=== PATIENT | male | born 1960 | race Caucasian/White ===

== ENCOUNTER 2022-09-29 15:19 | Outpatient (CLI) | payer SELFPAY | END 2022-09-29 15:20 | disposition home or self-care (01) | LOC: AMB 10-07 21:43 | PROVIDERS: Visit Provider Family Medicine | DX: R41.82 Altered mental status, unspecified (principal) | CPT/HCPCS: A0425; A0433 ==

== ENCOUNTER 2025-02-19 01:52 | Outpatient (CLI) | payer MEDICARE, SELFPAY | END 2025-02-19 01:53 | disposition home or self-care (01) | LOC: AMB 02-20 13:21 | PROVIDERS: Visit Provider Family Medicine | DX: R41.82 Altered mental status, unspecified (principal); T65.91XA Toxic effect of unspecified substance, accidental (unintentional), initial encounter; Y92.009 Unspecified place in unspecified non-institutional (private) residence as the place of occurrence of the external cause | CPT/HCPCS: A0425; A0427 ==

== ENCOUNTER 2025-02-19 02:36 | Inpatient (IN) | payer MEDICARE, SELFPAY ==
[2025-02-19] VITALS (19 sets, daily range): BP systolic 98–155; BP diastolic 72–108; PULSE 64–99; RESP 10–17; TEMP 36.2–37.1; O2SAT 90–99; BMI 21.0
[2025-02-19] MEDS: 0.9 % SODIUM CHLORIDE 1000 ml 1,000 ML IV ×2 (02:45→03:30)
--- NOTE | 2025-02-19 03:01 | XR_ITS ---
Patient: ISABELLE GRAFF Facility:?[facility] Patient ID:?[id number] Site Patient ID:?[id number] Site :?1960 Study:?XRay-Chest 2V-02/19/2025 3:12:39 AM Ordering Physician:Shawna Negron Final Report: Indication: Shortness of breath Technique: Single view of the chest Comparison: Chest radiograph performed 06/11/2017 Findings/Impression: Prominent central and peripheral interstitial markings, question volume overload. Dictated by Param Lentz MD @ 02/19/2025 3:40:17 AM (Electronic Signature)
[2025-02-19] MEDS: ONDANSETRON 2 MG/ML inj 4 MG IVP (03:15)
--- NOTE | 2025-02-19 03:15 | CT_ITS ---
Patient: ISABELLE GRAFF Facility:?[facility] Patient ID:?[id number] Site Patient ID:?[id number] Site :?1960 Study:?CT-Head WITHOUT-02/19/2025 3:27:55 AM Ordering Physician:Jamil Matos Final Report: Indication: Altered mental status Technique: Noncontrast CT through the head with multiplanar reformats Comparison: None Findings: Mild motion degradation. Brain: No acute hemorrhage. No acute infarct. No significant mass effect or midline shift. No gross evidence of a mass lesion or cerebral edema. Mild chronic microvascular ischemic disease and global parenchymal volume loss. Ventricles: No acute abnormality appreciated. Orbits, sinuses, mastoids: No acute abnormality appreciated. Trace sinus disease. Calvarium and soft tissues: No acute abnormality appreciated. Impression: Allowing for mild motion degradation, no acute abnormality is appreciated. Please note that all CT scans at this facility use dose modulation, iterative reconstruction, and/or weight-based dosing when appropriate to reduce radiation dose to as low as reasonably achievable. Dictated by Param Lentz MD @ 02/19/2025 3:41:41 AM (Electronic Signature)
--- NOTE | 2025-02-19 04:22 | ED.GENADULT ---
HPI - General Adult General Chief complaint: Altered Mental Status Stated complaint: overdose Time Seen by Provider: 02/19/25 04:22 Source: EMS Mode of arrival: EMS Limitations: altered mental status History of Present Illness HPI narrative: Downtime documentation on Kahlil Max 67-year-old male presents to the emergency department by EMS GCS of 12 reported at the scene.? Family reports 6 hours of altered mental status, lethargy.? As all seem to start after patient took an unknown substance that was sitting on the kitchen counter, believed to be drugs.? History of tobacco use and longstanding history of alcoholism.? Patient does not disclose what he takes even though he is clearly listening to us, speaking in full sentences at the time of arrival, asking for water but he they had questions regarding the ingested substance.? EMS reports that he has become increasingly more active and alert since their arrival.? They did originally think that he would need intubation but became more and more aroused.? He did receive 2 doses of Narcan from 1st responders which they initially reported did not have effect.? Blood sugar reported to be 130 on the scene. ?No additional treatments were given by EMS.? Was placed on nasal cannula oxygen, nasal trumpet was placed, vital signs had remained stable, they were unable to get a good 12 lead EKG but reported nice regular rhythm upon transport to [facility].? Family denies any recent illness or trauma.? No in knows what substance he ingested.? He is not disclosing this.? He gives no additional history.? We do have some outside records from a line of that show alcoholism. ?his last ED visit was for hand laceration in December while he was cleaning his hunting knives.? It appears as though he received stitches, no antibiotics and was discharged from [facility].? Our computer system is down and cannot be reviewed, routine maintenance monthly.? EMS reports no obvious drug paraphernalia on scene. Past medical history is notable for chronic alcohol abuse.? Adjustment disorder, chronic pain disorder.? History of hepatitis-C.? It does not appear as though he is prescribed any long-term medications.? Last tetanus shot was in December.? No known drug allergies. Upon arrival, O2 sats were 96% on 10 L, we quickly weaned him down to 5 L and at the time of by inventory and pricing associate which is about 45 minutes from arrival, he is on room air satting 96%.? Initial blood pressure 115/80 with a pulse of 95 temp of 96.1?.? Generally he is awake, GCS is 14, not clearly following commands but much of this does seem quite selective.? Head appears atraumatic eyes with normal-appearing pupils and conjunctiva.? Extraocular movements are intact.? Equal round and reactive to light.? Oropharynx with poor dentition but with symmetric palate, normal appearing tongue.? Normal facial exam neck is supple no lymphadenopathy, normal range of motion with no obvious stiffness.? Heart with regular rate rhythm no murmurs rubs or gallops the chest shows pes excavatum, chronic appearing in nature.? No obvious signs of chest trauma.? The lungs have some mild end expiratory wheeze and some mild coarse upper airway sounds but no obvious crackles, does have good symmetric air movement and normal effort.? Abdomen soft nontender nondistended no masses no hepatosplenomegaly.? Extremities are well perfused with normal capillary refill, no obvious trauma.? No joint enlargement or signs recent injury.? Neurologically he can move his upper lower extremities at will.? No obvious focal deficit, does seem intoxicated.? Skin warm and well perfused with no obvious lacerations, bruises.? Mentation difficult to assess in altered state. ED course:? Team was assembled with anticipation of need for RSI.? Thankfully this was not necessary.? With patient's mild agitation, we did have some difficulty getting an IV also compound by his poor venous status.? Eventually 1 was obtained, a L of normal saline warmed was started, blankets.? We were not able to draw blood unfortunately after her IV start and additional personnel were needed from lab for this.? Baker catheter was placed to collect urinalysis and measure urine output.? We wean down to 5 and now room air.? He is off to head CT.? EKG is obtained.? This shows normal sinus rhythm with a rate of 95 some chronic appearing left atrial enlargement but no significant ST or T-wave abnormalities.? Normal axis, good R-wave progression.? Computer system is down, can?t look for comparisons.? Will obtain typical labs, provide fluid and respiratory support if needed while we await labs and findings.? At this point since he is improving rapidly, I suspect that the etiology of his altered mental status is intoxication likely polysubstance.? Cannot exclude sepsis, other sources of infection, poisoning, metabolic derangement secondary to dehydration, electrolyte abnormality, intra-abdominal process, acute respiratory process, postictal state due to seizure, chronic conditions, amongst many others.? Laboratory studies should help narrow the scope and guide further decision making.? Overall reassuring that he does seem to be improving rapidly from original EMS arrival. Initial labs: Initial lactate is 9.4 which is thought secondary to dehydration, not showing any signs of tachycardia or hypotension that would indicate sepsis. His initial pH is 7.109 indicating significant acidosis. I suspect that this was primarily a respiratory driven process. I do think 5th the several hours that he was down prior to his family calling EMS and then the administration of Narcan which was likely able to reverse the opiates but not fully account for the metabolic damage and potentially all the other substances on board. Patient did start to improve within about 20-30 minutes of the Narcan administration, leading me to believe that this likely was a bigger factor for improvement than initially thought by 1st responders. Initial drug screens are positive for opiates, amphetamines, methamphetamines, cocaine and marijuana. White blood cell count elevated at 19 with a hemoglobin of 13.5 and platelets of 248. Sodium 146 potassium 4.5 labium 18 and a creatinine of 2.1. AST of 245 with an ALT of 169 indicating likely chronic alcohol abuse, normal bilirubin. Ammonia 37.7 with initial troponin of 0.557, unexpectedly elevated. Magnesium of 2.5 alcohol level less than 0.01 Tylenol level negative as well. Will order repeat lactate after 2 L of fluids, repeat troponin and repeat blood gases at 4:30 a.m.. Findings: Per my interpretation CT of the head showing no signs of mass, intracranial hemorrhage, skull fracture or abnormality.? Radiological interpretation Impression: Allowing for mild motion degradation, no acute abnormality is appreciated.: Chest x-ray per my interpretation showing some prominent vascular markings, no obvious infiltrate, effusion, pneumothorax or major cardiac enlargement.? Radiological interpretation: Findings/Impression: Prominent central and peripheral interstitial markings, question volume overload. Status update at 4:00 a.m.. Patient continues to arouse to voice, will take sips at the bedside, move extremities on demand but falls back to sleep quickly. Vitals have remained stable, he is off of oxygen and breathing well on his own. 2 L fluid is nearly complete, awaiting repeat labs. Related Data Allergies Allergy/AdvReac Type Severity Reaction Status Date / Time No Known Drug Allergies Allergy Verified 02/19/25 04:27 [facility] Social History Non-prescribed substance use: declined to answer Exam Const: Vital Signs, click to edit/add: Vital Signs - 24 hr 02/19/25 02:36 02/19/25 02:45 02/19/25 03:00 Temperature 97.1 F L Pulse Rate Pulse Rate [Pulse Oximeter] 96 99 97 Respiratory Rate 14 14 14 Blood Pressure [Ri ght Upper Arm] 115/80 117/103 H 117/103 H Pulse Oximetry 99 99 98 Oxygen Delivery Me thod Ambu-Bag OxyMask OxyMask Oxygen Flow Rate 15 15 5 02/19/25 03:10 02/19/25 03:30 02/19/25 04:00 Temperature Pulse Rate Pulse Rate [Pulse Oximeter] 97 82 79 Respiratory Rate 14 16 16 Blood Pressure [Ri ght Upper Arm] 115/80 98/72 111/78 Pulse Oximetry 96 95 96 Oxygen Delivery Me thod Room Air Room Air Nasal Cannula Oxygen Flow Rate 0 0 2 02/19/25 04:30 02/19/25 04:40 02/19/25 04:44 Temperature Pulse Rate 82 Pulse Rate [Pulse Oximeter] 79 Respiratory Rate 14 10 L Blood Pressure [Ri ght Upper Arm] 114/85 Pulse Oximetry 97 96 96 Oxygen Delivery Me thod Nasal Cannula Nasal Cannula Oxygen Flow Rate 2 2 02/19/25 04:45 Temperature 97.9 F Pulse Rate 80 Pulse Rate [Pulse Oximeter] Respiratory Rate 17 Blood Pressure [Ri ght Upper Arm] Pulse Oximetry 92 Oxygen Delivery Me thod Nasal Cannula Oxygen Flow Rate 2 Course Course ED Course: Update 5:15 a.m.: Patient more easily aroused, will ask spontaneous questions now in addition to answering our questions. Still not showing any focal neurological deficits, continues to deny chest pain. His troponins are trending down and his repeat EKG is stable, still no signs of ischemia. Acidosis is improving on repeat labs, he is now drinking fluids. I think that the subendocardial myocardial infarction was likely secondary to hypoxia and respiratory failure from opiate overdose though there are multiple agents in his system. Counseled patient that his event would have likely been fatal had his family not called for help and the Narcan been given. Patient has been accepted by the hospitalist for observation admission, they will continue fluid and electrolyte management, management of acidosis, further investigation of cardiac status. I recommended an echo and continued chief service dispatcher in telemetry. They will assume care. Patient was agreeable to admission. Vital Signs Vital signs: Initial Vital Signs Temperature 97.1 F L 02/19/25 02:36 Temperature Source Temporal Artery Scan 02/19/25 02:36 Pulse Rate 96 02/19/25 02:36 Respiratory Rate 14 02/19/25 02:36 Blood Pressure 115/80 02/19/25 02:36 Blood Pressure Mean 91 02/19/25 02:36 Blood Pressure Position Supine 02/19/25 02:36 Pulse Oximetry 99 02/19/25 02:36 Oxygen Delivery Method Ambu-Bag 02/19/25 02:36 Oxygen Flow Rate 15 02/19/25 02:36 Vital Signs Temperature 97.1 F L 02/19/25 02:36 Pulse Rate 96 02/19/25 02:36 Respiratory Rate 14 02/19/25 02:36 Blood Pressure 115/80 02/19/25 02:36 Pulse Oximetry 99 02/19/25 02:36 Oxygen Delivery Method Ambu-Bag 02/19/25 02:36 Oxygen Flow Rate 15 02/19/25 02:36 Temperature 97.9 F 02/19/25 04:45 Pulse Rate 80 02/19/25 04:45 Respiratory Rate 17 02/19/25 04:45 Blood Pressure 114/85 02/19/25 04:30 Pulse Oximetry 92 02/19/25 04:45 Oxygen Delivery Method Nasal Cannula 02/19/25 04:45 Oxygen Flow Rate 2 02/19/25 04:45 Medications Administered Medications: Generic Name Dose Route Start Last Admin Trade Name Freq PRN Reason Stop Dose Admin Sodium Chloride 1,000 mls @ 1,000 mls/hr 02/19/25 04:39 02/19/25 03:45 0.9 % Sodium Chloride 1000 Ml IV 02/19/25 05:38 Infused .Q1H ROBERT Infusion Sodium Chloride 1,000 mls @ 1,000 mls/hr 02/19/25 04:39 02/19/25 04:30 0.9 % Sodium Chloride 1000 Ml IV 02/19/25 05:38 Infused .Q1H ROBERT Infusion Ondansetron HCl 4 mg 02/19/25 04:39 02/19/25 03:15 Ondansetron 2 Mg/Ml Inj IVP 02/19/25 04:40 4 mg ONCE ONE Administration Medical Decision Making Lab Data Lab results reviewed: Yes I reviewed the patient's lab results Lab results narrative: Second troponin improving somewhat, acidosis improving rapidly. Lactate improving as well. Labs: Lab Results 02/19/25 02/19/25 Range/Units 03:15 04:22 WBC 19.07 H (4.50-11.00) K/uL RBC 4.58 (4.30-5.90) m/uL Hgb 13.5 (13.5-17.5) gm/dL Hct 42.7 (37.0-53.0) % MCV 93 (80-100) fL MCH 30 (26-34) pg MCHC 32 (32-36) gm/dL Plt Count 248 (140-440) K/uL Neut % (Auto) 85.5 H (42.0-72.0) % Lymph % (Auto) 3.2 L (20-44) % [place] % (Auto) 9.6 (0.0-11.0) % Eos % (Auto) 0.0 (0.0-7.0) % Baso % (Auto) 0.1 (0.0-3.0) % Neut # (Auto) 16.30 H (1.7-7.0) K/uL Lymph # (Auto) 0.61 L (0.90-2.90) K/uL [place] # (Auto) 1.80 H (0.00-0.90) K/UL Eos # (Auto) 0.00 (0.00-0.50) K/uL Baso # (Auto) 0.00 (0.00-0.30) K/uL VBG pH 7.109 L* 7.343 (7.32-7.43) VBG pCO2 68 H* 54 H (40-50) mmHG VBG pO2 30.5 44.6 (25-47) mmHG VBG HCO3 22 24 (21-28) mmol/L Sodium 146 (135-149) mmol/L Potassium 4.5 (3.6-5.1) mmol/L Chloride 104 (96-114) mmol/L Carbon Dioxide 19 L (20-32) mmol/L Anion Gap 23 H (7-15) mEq/L BUN 18 (7-30) mg/dL Creatinine 21.0 H (0.5-1.5) mg/dL Estimated Creat Clear 3.00 Estimated GFR 2 ml/min Glucose 93 (60-115) mg/dL Lactate 9.4 H* 3.3 H (0.5-1.9) mmol/L Calcium 9.2 (8.4-10.6) mg/dL Magnesium 2.5 (1.5-2.6) mg/dL Total Bilirubin 0.4 (0.1-1.5) mg/dL AST 245 H (12-35) U/L ALT 169 H (4-50) U/L Alkaline Phosphatase 68 (40-150) U/L Ammonia 37.7 H (13.1-30.0) umol/L Total Creatine Kinase 410 H (54-186) U/L Troponin I 0.56 H* 0.49 H* (0.01-0.04) ng/mL Total Protein 7.9 (6.0-8.3) g/dL Albumin 5.1 H (3.3-5.0) g/dL Urine Color Yellow (Yellow) Urine Appearance Clear (Clear) Urine pH 6.0 (5.0-8.5) Ur Specific [place] 1.030 (1.000-1.030) Urine Protein 3+ A (Negative) Urine Glucose (UA) Negative (Negative) Urine Ketones Negative (Negative) Urine Blood 3+ A (Negative) Urine Nitrite Negative (Negative) Urine Bilirubin Negative (Negative) Urine Urobilinogen 0.2 (0.2-1.0) Ur Leukocyte Esterase Negative (Negative) Urine RBC 5-10 A (0-2) Urine WBC 0-2 (0-5) Ur Squamous Epith Cells None (None-Few) Urine Bacteria None (None) Urine Mucus Few A (None) Urine Opiates Screen POSITIVE A (Negative) Ur Oxycodone Screen Negative (Negative) Urine Methadone Screen Negative (Negative) Acetaminophen 10.0 (10.0-30.0) ug/mL Ur Barbiturates Screen Negative (Negative) U Tricyclic Antidepress Negative (Negative) Ur Phencyclidine Scrn Negative (Negative) Ur Amphetamines Screen POSITIVE A (Negative) U Methamphetamines Scrn POSITIVE A (Negative) U Benzodiazepines Scrn Negative (Negative) Urine Cocaine Screen POSITIVE A (Negative) U Marijuana (THC) Screen POSITIVE A (Negative) Ur Drug Screen Comment See Note Ethyl Alcohol 0.01 (0.01-0.03) % Critical Care Time Critical Care Time Critical Care Time: Yes Attestation: The patient required my highest level preparedness to intervene emergently and I personally spent this critical care time directly and personally managing the patient. This critical care time included: Obtaining a history; Examining the patient; Pulse oximetry; Ordering and reviewing of studies; Arranging urgent treatment with development of a management plan; Evaluation of patients response to treatment; Frequent reassessment discussions with other providers. This critical care time was performed to assess and manage the high probability of imminent life-threatening deterioration that could result in multiorgan failure. It was exclusive of separate billable procedures and treating other patients and teaching time. Total Critical Care Time in Minutes: 42 (Initial stabilization and management of patient.) Discharge Plan Discharge Clinical Impression: Metabolic acidosis, Elevated troponin, Acute hypoxic respiratory failure, Delirium, drug-induced, Acute dehydration Patient Disposition: Admitted As Inpatient
--- OUTSIDE RECORDS SUMMARY | 2025-02-19 04:24 | XMS_ITS | Encounter Summary ---
Author Organization [facility] Address [address] [place] [id number] Care Team Providers Care Food Checkers And Cashiers Supervisor Name Role Phone Naoh Campos MD Primary Care Provider [phone] Noah Campos MD Unavailable [phone] Noah Campos MD Unavailable [phone] Encounter Details Date Type Department Care Team (Late st Contact Info) Description 07/08/2007 [facility] [address] [phone] Noah Campos MD [address] [place] [address] [phone] ER VISIT (Primary Dx) Social History Tobacco Use Types Packs/Day Years Used Date Smoking Tobacco: Every Day Cigarettes Smokeless Tobacco: Never Comments:1 pk every 3-4 days Alcohol Use Standard Drinks/Week Comments No 0 (1 standard drink = 0.6 oz pur e alcohol) Sex and Gender Information Value Date Recorded Sex Assigned at Not on file Legal Sex Male 3:22 AM [employer] Gender Identity Not on file Sexual Orientation Not on file documented as of this encounter Plan of Treatment Not on file documented as of this encounter Visit Diagnoses Diagnosis ER VISIT- Primary documented in this encounter Care Teams Food Checkers And Cashiers Supervisor Relationship Specialty Start Date End Date Noah Campos MD [address] [place] [address] [phone] PCP - General 11/26/01 Noah Campos MD [address] [place] [phone] PCP - Assigned PCP 04/15/10 12/14/18 Noah Campos MD [address] [place] [phone] Assigned PCP 07/15/12 11/10/20 documented as of this encounter
--- OUTSIDE RECORDS SUMMARY | 2025-02-19 04:24 | XMS_ITS | Clinical Summary ---
Author Organization [facility] Address [address] [place] [address] Care Team Providers Care Aircraft Life Support Fitter Name Role Phone Noah Campos MD Primary Care Provider [phone] Allergies No known active allergies Medications fish oil-omega-3 fatty acids (FISH OIL) 1000 MG capsule Take 2 g by mouth daily. Active ORDER FOR DMEIndications: Paresthesias in right hand,Pain in wrist, right Equipment being ordered: right velcrow wrist splint 1 Device 0 4 Active Ketoprofen POWDIndications :Back pain,Low back pain,Chronic pain syndrome,Neural oumar, neuritis, and radiculitis, unspecified,Luke fascial pain Apply 10 % in PLO gel tid to right flank, low back and right costal margin 120 g 0 4 Active lidocaine (LIDODERM) 5 % patchIndication s:Back pain,Low back pain,Chronic pain syndrome,Neural oumar, neuritis, and radiculitis, unspecified,Luke fascial pain Place 1-3 patches onto the skin every 24 hours May cut fit apply to right lateral rib cage, right flank and low back. 90 patch 1 4 Active ORDER FOR DMEIndications: Back pain,Low back pain,Chronic pain syndrome,Neural oumar, neuritis, and radiculitis, unspecified,Luke fascial pain Equipment being ordered: TENS 1 each 0 4 Active gabapentin (NEURONTIN) 600 MG tabletIndicatio ns:Back pain,Low back pain,Chronic pain syndrome,Neural oumar, neuritis, and radiculitis, unspecified,Luke fascial pain Take 1 tablet (600 mg) by mouth 3 times daily 90 tablet 5 5 Active cyclobenzaprine (FLEXERIL) 5 MG tabletIndicatio ns:Chronic pain syndrome Take 1-2 tablets (5-10 mg) by mouth 3 times daily as needed for muscle spasms 60 tablet 5 6 Active albuterol (PROAIR HFA/PROVENTIL HFA/VENTOLIN HFA) 108 (90 BASE) MCG/ACT InhalerIndicati ons:Chest wall pain,Empyema lung (H) Inhale 2 puffs into the lungs every 6 hours as needed for shortness of breath / dyspnea 3 Inhaler 11 7 Active oxyCODONE IR (ROXICODONE) 5 MG tabletIndicatio ns:Chronic pain syndrome,Empyem a lung (H) Take 1 tablet (5 mg) by mouth 2 times daily as needed for moderate to severe pain 60 tablet 8 Active Active Problems Problem Noted Date Diagnosed Date Major depressive disorder, single episode, mild 05/12/2016 Acute hepatitis C virus infection without hepati c coma 05/12/2016 Lumbago 04/12/2014 Carpal tunnel syndrome 03/02/2014 Chronic pain syndrome 12/27/2013 Overview (01/20/2018): Patient is followed by Noah Campos for ongoing prescription of pain meds All refills should be approved by this provider, or covering partner. Narcotic agreement on file: Yes as available 01/27/2014 Pain Clinic evaluation in the past: No. Medication(s): roxicodone. Maximum quantity per month: 1 month Clinic visit frequency required: Q 6 months Controlled substance agreement: yes Encounter-Level CSA: There are no encounter-level csa. Pain Clinic evaluation in the past: Yes Date/Location: [facility] Total Score(s): No flowsheet data found. 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 Provider to review Immunizations Immunization Administration Dates Next Due Influenza (IIV3) PF 08/31/2017, 4,08/09/2013,2011,08/10/2010 Influenza Vaccine >6 months,quad, PF 08/15/2015 Influenza Vaccine, 6+MO IM (QUADRIVALENT W/PRESERVATIVES) 09/21/2020 Mantoux Tuberculin Skin Test 11/20/2011 Pneumococcal 23 valent 12/09/2008,09/27/2008 TD,PF 7+ (Tenivac) 04/27/1984 TDAP Vaccine (Adacel) 09/11/2010,05/23/2009,12/11 Family History Medical History Relation Comments Heart Disease Father b. 1929, CAD- By pass surgery Cancer Mother lung cancer Family History Negative Mother b. 1939 Respiratory Son b. 1996, asthma Relation Status Comments Father Alive Mother (Age 72) Son Social History Tobacco Use Types Packs/Day Years Used Date Smoking Tobacco: Every Day Cigarettes Smokeless Tobacco: Never Tobacco Cessation:Ready to Q uit: No; Counseling Given: No Comments:1 pk every 3-4 days Alcohol Use Standard Drinks/Week Comments No 0 (1 standard drink = 0.6 oz pur e alcohol) PHQ-2 Answer Date Recorded PHQ-2 Score 0 10/19/2018 Adolescent Education Answer Date Record ed Getting School Help Needed Not on file 07/12 Sex and Gender Information Value Date Recorded Sex Assigned at Not on file Legal Sex Male 3:22 AM SHAREPOINT SOLUTIONS ARCHITECT Gender Identity Not on file Sexual Orientation Not on file Last Filed Vital Signs Vital Sign Reading Time Taken Comments Blood Pressure 137/86 08/12/2020 10:39 PM SHAREPOINT SOLUT[employer] ARCHITECT Pulse 76 08/12/2020 10:39 PM SHAREPOINT SOLUTIONS ARCHITECT Temperature 36.7 C (98 F) 08/12/2020 7:28 PM SHAREPOINT SOLUT[employer] ARCHITECT Respiratory Rate 20 08/12/2020 10:39 PM SHAREPOINT SOLUTIONS ARCHITECT Oxygen Saturation 98% 08/12/2020 10:39 PM SHAREPOINT SOLUTIONS ARCHITECT Inhaled Oxygen Concentration - - Weight 70.8 kg (156 lb) 08/12/2020 7:28 PM SHAREPOINT SOLUT[employer] ARCHITECT Height 170.2 cm (5' 7) 08/12/2020 7:28 PM SHAREPOINT SOLUT[employer] ARCHITECT Body Mass Index 24.43 08/12/2020 7:28 PM SHAREPOINT SOLUTIONS ARCHITECT Plan of Treatment Health Maintenance Due Date Last Done Comments ADVANCE CARE PLANNING 1960 ANNUAL REVIEW OF HM ORDERS 1960 CT COLONOGRAPHY 1960 sDNA (Cologuard) 1960 COLONOSCOPY 1971 MEDICARE ANNUAL WELLNESS VISIT 1979 Pneumococcal Vaccine: 50+ Years (2 of 2 - PCV) 12/09/2009 12/09/2008, 09/27/2008 FLEX SIG 05/27/2011 05/27/2006 LUNG CANCER SCREENING 2011 11/20/2008, 008 ZOSTER IMMUNIZATION (1 of 2) 2011 COLORECTAL CANCER SCREENING 11/22/2012 FIT 11/22/2012 11/22/2011 LIPID 11/23/2012 11/23/2011 PSA 11/23/2012 11/23/2011 URINE DRUG SCREEN 12/27/2014 12/27/2013 PHQ-9 05/31/2017 12/01/2016, 04/10/2015, 12/04/2014, Additional history exists DIABETES SCREENING 05/12/2019 05/12/2016, 0 05/21/2015, 05/02/2014, Additional history exists DTAP/TDAP/TD IMMUNIZATION (5 - Td or Tdap) 09/11/2020 09/11/2010, 05/23/2009, 12/30/2007, Additional history exists HEPATITIS B IMMUNIZATION (1 of 3 - Risk 3-dose series) 2021 COVID-19 Vaccine ( season) 2024 INFLUENZA VACCINE (Season Ended) 2025 09/21/2020, 08/31/2017, 08/15/2015, Additional history exists RSV VACCINE (1 - 1-dose 75+ series) 2036 HIV SCREENING Completed 09/21/2008 HEPATITIS C SCREENING Completed 10/14/2010 , 08/17/2010, 12/09/2007, Additional history exists DEPRESSION ACTION PLAN Completed 7, 09/02/2017, 01/31/2016, Additional history exists HPV IMMUNIZATION Aged Out No longer e ligible based on patient's age to complete this topic MENINGITIS IMMUNIZATION Aged Out No l onger eligible based on patient's age to complete this topic Procedures Procedure Name Priority Date/Time Associated Diagnosis Comments GLUCOSE Routine 05/12/2016 3:53 PM CDT Preop general physical exam PAIN DRUG SCR UR W RPTD MEDS Routine 12/27/2013 3:33 PM CDT Empyema lung (H) Chronic pain syndrome PROSTATE SPECIFIC ANTIGEN SCREEN Routine 11/23/2011 4:00 PM SHAREPOINT SOLUTIONS ARCHITECT Special screening for malignant neoplasm of prostate LIPID PROFILE Routine 11/23/2011 4:00 PM SHAREPOINT SOLUTIONS ARCHITECT CARDIOVASCULAR SCREENING; LDL GOAL LESS THAN 130 FECAL COLORECTAL CANCER SCREEN FIT Routine 11/22/2011 8:23 PM [employer]AREPOINT SOL[employer] ARCHITECT Colon cancer screening HEPATITIS C RNA, QUANTITATIVE BY PCR Routine 10/14/2010 11:40 AM SHAREPOINT SOLUTIONS ARCHITECT Chronic hepatitis C without mention of hepatic com HC CT THORAX W/O CONT Routine 11/20/2008 9:16 AM SHAREPOINT SOL[employer]IONS ARCHITECT HIV 1 AND 2 ANTIBODY (QUEST) Timed 09/21/2008 4:35 PM [employer]POINT SOL[employer] ARCHITECT FLEXIBLE SIGMOIDOSCOPY Routine 6 9:05 AM CDT from Last 3 Months or Most Recently Relevant to Health Maintenance Results * (ABNORMAL) Glucose (05/12/2016 3:53 PM CDT) Glucose 108(H) 70 - 99 mg/dL [facility] Blood specimen (specimen) 05/12/2016 3:53 PM CDT 05/12/2016 3:58 PM CDT us Noah Campos MD LAB - BLOOD ORDERABLES Final R esult [facility] [address] [place] [address] * Pain Drug Scr UR W Rptd Meds (12/27/2013 3:33 PM CDT) Pain Drug SCR UR W RPTD Meds FINAL (Note) Test Result Flag UNITS Creatinine 84 mg/dL Drugs Present Gabapentin PRESENT Declared Medications: Not Provided The flagging and interpretation on this report are based on the following declared medications. Unexpected results may arise from inaccuracies in the declared medications. Medication list was not provided. For clinical consultation, please call . Analysis performed by [facility], [address] [place] [address] [facility] Urine specimen (specimen) 12/27/2013 3:33 PM CDT 12/27/2013 3:38 PM CDT us Noah Campos MD LAB - URINE ORDERABLES Final R esult Performing Organization Address [facility] Co de Phone Number [facility] [address] [place] [address] * PSA, screen (11/23/2011 4:00 PM SHAREPOINT SOLUTIONS ARCHITECT) Pathologist [facility] PSA 1.15 0 - 4 ug/L [facility] Blood specimen (specimen) 11/23/2011 4:00 PM SHAREPOINT SOL[employer] ARCHITECT 11/23/2011 4:05 PM SHAREPOINT SOLUT[employer] ARCHITECT us Noah Campos MD LAB - BLOOD ORDERABLES Final R esult Performing Organization Address [facility] Co de Phone Number [facility] [address], [place] [address] * (ABNORMAL) Lipid Profile (11/23/2011 4:00 PM SHAREPOINT SOL[employer] ARCHITECT) Cholesterol 198 0 - 200 mg/dL [facility] Comment: LDL Cholesterol is the primary guide to therapy. The NCEP recommends further evaluation of: patients with cholesterol greater than 200 mg/dL if additional risk factors are present, cholesterol greater than 240 mg/dL, triglycerides greater than 150 mg/dL, or HDL less than 40 mg/dL. Triglycerides 337(H) 0 - 150 mg/dL [facility] HDL Cholesterol 41 40 - 110 mg/dL [facility] LDL Cholesterol Calculated 90 0 - 129 mg/dL [facility] Comment: LDL Cholesterol is the primary guide to therapy: LDL-cholesterol goal in high risk patients is <100 mg/dL and in very high risk patients is <70 mg/dL. VLDL-Cholesterol 67(H) 0 - 30 mg/dL [facility] Cholesterol/HDL Ratio 4.9 0.0 - 5.0 [facility] Blood specimen (specimen) 11/23/2011 4:00 PM [employer] SOL[employer] ARCHITECT 11/23/2011 4:05 PM [employer]AREPOINT SOL[employer] ARCHITECT us Noah Campos MD LAB - BLOOD ORDERABLES Final R esult [facility] [address] [place] [address] * Fecal colorectal cancer screen (FIT) (11/22/2011 8:23 PM SHAREPOINT SOL[employer] ARCHITECT) Pathologist [facility] Occult Blood Scn FIT Negative NEG [facility] Stool specimen (specimen) 11/22/2011 8:23 PM [employer] SOL[employer] ARCHITECT 11/22/2011 8:38 PM [employer]ARE[employer] ARCHITECT us Noah Campos MD LAB - STOOLS ORDERABLES Final Result Performing Organization Address City/[facility]/ZIP Co de Phone Number [facility] [address] [place] [address] * Hepatitis C RNA quantitative (10/14/2010 11:40 AM SHAREPOINT SOL[employer] ARCHITECT) Pathologist [facility] HCV RNA Quant IU/ml <25 <25 IU/mL [facility] Log of HCV RNA Qt <1.4 The Hepatitis C RNA Quantitation assay is a real-time polymerase chain reaction (PCR) utilizing analyte specific reagents manufactured by [employer]. Analyte Specific Reagents (ASRs) are used in many laboratory tests necessary for standard medical care and generally do not require FDA approval. This test was developed and its performance characteristics determined by [facility]. It has not been cleared or approved by the US Food and Drug Administration. The International Unit (IU) is a designated unit value assigned to the International Standard for Nucleic Acid Amplification Technology Assays for HCV RNA which is accepted by the WHO Expert Committee on Biological Standardization. <1.4 Log IU/mL [facility] Blood specimen (specimen) 10/14/2010 11:40 AM SHAREPOINT SOL[employer]IONS ARCHITECT 10/14/2010 11:45 AM [employer]AREPOINT SOL[employer] ARCHITECT us Brady Araujo MD LAB - BLOOD ORDERABLES Fi nal Result [facility] [address] [place] [address] * CT SCAN CHEST (11/20/2008 9:16 AM SHARE[employer] SOL[employer] ARCHITECT) Anatomical Region Laterality Modality Other 11/20/2008 9:16 AM [employer] ARCHITECT Impressions 11/20/2008 12:[address] [employer] [address] CHEST WITHOUT CONTRAST November 20, 2008 9:16:00 AM HISTORY: Pneumonia. Empyema on CT abdomen and pelvis. TECHNIQUE: CT chest performed without IV contrast. COMPARISON: CT abdomen and pelvis 11/19/2008. FINDINGS: Redemonstrated is a loculated right pleural fluid collection with suggestion of thickening peripherally. The fluid component measures stable in size at 4.8 x 2.1 cm, image 39 series 2. There is associated atelectasis, and a small freely layering pleural effusion as well at that site. There is also note of an ill-defined lucent lesion within the posterior right eleventh rib immediately posterior to this process, along with an old healed rib fracture of the right posterior tenth rib. Some more dense opacity may represent some focal airspace disease at the right lower lobe anterior to the atelectatic changes, image 35 series 3. Some very mild patchy ground-glass opacities are identified within the posterior and lateral right upper lobe, image 19 series 3. There is the suggestion of some very mild ground-glass patchy opacities along the periphery of the left upper lobe as well. Scarlike opacities at the base of the right upper lobe are noted. Noncontrast enhanced appearance of the mediastinum shows no acute abnormality. A few mildly prominent appearing left axillary lymph nodes do not reach CT size criteria for pathologic significance. Very mild coronary artery calcification is noted. No pericardial effusion. Included view of the upper abdomen shows no acute abnormalities. Partial visualization of pancreatic calcifications again demonstrated. IMPRESSION: 1. No change in size of a loculated fluid collection within the right posterior pleural space at the right lung base with peripheral thickening. This is nonspecific but may represent an empyema versus other necrotic appearing pleural based process. Associated with this finding is a small dependently layering right pleural effusion, an old right posterior tenth rib fracture, and a lucent lesion within the posterior right eleventh rib. It is difficult to exclude an aggressive process within the right posterior eleventh rib associated with a lucent bony lesion, such as infection versus neoplasm. Correlate with clinical history of infection, and prior malignancy. Close interval imaging followup is recommended. 2. Very mild patchy ground-glass opacities within the right upper lobe. Infectious versus inflammatory etiologies may account for this appearance. Douglas Esposito MD SPECIAL IMAGING STUDIE S Edited * HIV 1 and 2 Antibody (09/21/2008 4:35 PM [employer] SOL[employer] ARCHITECT) Pathologist [facility] HIV 1&2 Antibody Negative NEG [facility] 09/21/2008 4:35 PM [employer] ARCHITECT 09/21/2008 4:30 PM [employer] ARCHITECT Humaira Crooks PA-C LAB - BLOOD ORDERABLES Fi nal Result [facility] * FLEXIBLE SIGMOIDOSCOPY (05/27/2006 9:05 AM CDT) Flex Sig [facility] Endoscopy Department Patient Name: Kahlil Max Gender: M Procedure Date: 05/27/2006 9:05 AM SSN: [id number] Date of : 1960 Age: 45 Admit Type: Inpatient Room: Note Status: Finalized Attending MD: Adam Mckeon Pause For The Cause: Pause for the ca Procedure: Flexible Sigmoidoscopy Indications: Rectal hemorrhage Providers: Adam Mckeon MD, Ashley Painter RN Referring MD: Noah Meyer MD Medicines: None Complications: No immediate complications Procedure: - A History and Physical has been performed, and patient medication allergies have been reviewed. The patient The risks and benefits of the procedure and the sedation options and risks were discussed with the patient. All questions were answered and informed consent was obtained. Patient identification and proposed procedure were verified prior to the procedure by the physician in the endoscopy suite. Mental Status Examination: alert and oriented. Airway Examination: normal oropharyngeal airway and neck mobility. Respiratory Examination: clear to auscultation. CV Examination: RRR, no murmurs, no S3 or S4. ASA Grade Assessment: P2 A patient with mild systemic disease. After reviewing the risks and benefits, the patient was deemed in satisfactory condition to undergo the procedure. The anesthesia plan was to use no sedation or anesthesia. Immediately prior to administration of medications, the patient was re-assessed for adequacy to receive sedatives. The heart rate, respiratory rate, oxygen saturations, blood pressure, adequacy of pulmonary ventilation, and response to care were monitored throughout the procedure. The physical status of the patient was re-assessed after the procedure. After obtaining informed consent, the scope was passed under direct vision. The [id number] onoscope was introduced through the anus and advanced to the splenic flexure. The flexible sigmoidoscopy was accomplished without difficulty. The patient tolerated the procedure well. The quality of the prep was good. Findings: The perianal and digital rectal examination was normal. Pertinent negatives include normal sphincter tone and no palpable rectal lesions. The area from anus to splenic flexure was normal. Impression: - The anus to splenic flexure is normal. Recommendation: - Return to referring provider (Dr. Presley) in 1 week. CPT Code(s): 88308, Sigmoidoscopy, flexible; diagnostic, with or without collection of specimen(s) by brushing or washing (separate procedure) ICD Code(s): 569.3, Hemorrhage of Rectum and Anus The codes documented in this report are preliminary and upon marketing program manager review may be revised to meet current compliance requirements. Attending Participation: I was present and participated during the entire procedure, including non-morris portions. Claire Mckeon M.D. __ Adam Mckeon MD Signed Date: 05/27/2006 10:00 AM Number of Addenda: 0 I was physically present for the entire viewing portion of the exam. Note generated on 05/27/2006 9:06 AM RADIOLOGY RESULTS Flex Sig RADIOLOGY RESULTS 05/27/2006 9:05 AM CDT us Adam Mckeon MD PROCEDURES Final R esult RADIOLOGY RESULTS from Last 3 Months or Most Recently Relevant to Health Maintenance Insurance MEDICARE [facility] [employer] Care Teams Aircraft Life Support Fitter Relationship Specialty Start Date End Date Noah Campos MD [address] [place] [phone] PCP - General 11/26/01
--- OUTSIDE RECORDS SUMMARY | 2025-02-19 04:24 | XMS_ITS | Encounter Summary ---
Author Organization [facility] Address [address] [place] [address] Care Team Providers Care General Supervisor Name Role Phone Noah Campos MD Primary Care Provider [phone] Noah Campos MD Unavailable [phone] Noah Campos MD Unavailable [phone] Encounter Details Date Type Department Care Team (Late st Contact Info) Description 03/07/2009 [facility] [address] [phone] Noah Campos MD [address] [place] [phone] [facility]: ER REPORT Social History Tobacco Use Types Packs/Day Years Used Date Smoking Tobacco: Every Day Cigarettes Smokeless Tobacco: Never Comments:1 pk every 3-4 days Alcohol Use Standard Drinks/Week Comments No 0 (1 standard drink = 0.6 oz pur e alcohol) Sex and Gender Information Value Date Recorded Sex Assigned at Not on file Legal Sex Male 3:22 AM PLASTIC OUTFITTER Gender Identity Not on file Sexual Orientation Not on file documented as of this encounter Plan of Treatment Not on file documented as of this encounter Visit Diagnoses Not on filedocumented in this encounter Care Teams General Supervisor Relationship Specialty Start Date End Date Noah Campos MD [address] [place] [phone] PCP - General 11/26/01 Noah Campos MD [address] [place] [phone] PCP - Assigned PCP 04/15/10 12/14/18 Noah Campos MD [address] [place] [phone] Assigned PCP 07/15/12 11/10/20 documented as of this encounter
--- OUTSIDE RECORDS SUMMARY | 2025-02-19 04:24 | XMS_ITS | Encounter Summary ---
Author Organization [facility] Address [address] [place] [address] Care Team Providers Care Front Office Agent Name Role Phone Noah Campos MD Primary Care Provider [phone] Noah Campos MD Unavailable [phone] Noah Campos MD Unavailable [phone] Encounter Details Date Type Department Care Team (Late st Contact Info) Description 12/15/2008 [facility] [address] [phone] Noah Campos MD [address] [place] [phone] RETURN VISIT 12/15/08 Social History Tobacco Use Types Packs/Day Years Used Date Smoking Tobacco: Every Day Cigarettes Smokeless Tobacco: Never Comments:1 pk every 3-4 days Alcohol Use Standard Drinks/Week Comments No 0 (1 standard drink = 0.6 oz pur e alcohol) Sex and Gender Information Value Date Recorded Sex Assigned at Not on file Legal Sex Male 3:22 AM RETAIL COORDINATOR Gender Identity Not on file Sexual Orientation Not on file documented as of this encounter Plan of Treatment Not on file documented as of this encounter Visit Diagnoses Diagnosis [facility]: ER VISIT- Primary documented in this encounter Care Teams Front Office Agent Relationship Specialty Start Date End Date Noah Campos MD [address] [place] [phone] PCP - General 11/26/01 Noah Campos MD [address] [place] [phone] PCP - Assigned PCP 04/15/10 12/14/18 Noah Campos MD [address] [place] [phone] Assigned PCP 07/15/12 11/10/20 documented as of this encounter
--- OUTSIDE RECORDS SUMMARY | 2025-02-19 04:24 | XMS_ITS | Encounter Summary ---
Author Organization [facility] Address [address] [place] [address] Care Team Providers Care Insurance Attorney Name Role Phone Noah Campos MD Primary Care Provider [phone] Noah Campos MD Unavailable [phone] Noah Campos MD Unavailable [phone] Encounter Details Date Type Department Care Team (Late st Contact Info) Description 12/19/2008 [facility] [address] [phone] Noah Campos MD [address] [place] [phone] [facility] Emergency Dept (Primary Dx) Social History Tobacco Use Types Packs/Day Years Used Date Smoking Tobacco: Every Day Cigarettes Smokeless Tobacco: Never Comments:1 pk every 3-4 days Alcohol Use Standard Drinks/Week Comments No 0 (1 standard drink = 0.6 oz pur e alcohol) Sex and Gender Information Value Date Recorded Sex Assigned at Not on file Legal Sex Male 3:22 AM COMMUNICATION INSTRUCTOR Gender Identity Not on file Sexual Orientation Not on file documented as of this encounter Plan of Treatment Not on file documented as of this encounter Visit Diagnoses Diagnosis [facility] Emergency Dept- Primary documented in this encounter Care Teams Insurance Attorney Relationship Specialty Start Date End Date Noah Campos MD [address] [place] [phone] PCP - General 11/26/01 Noah Campos MD [address] [place] [phone] PCP - Assigned PCP 04/15/10 12/14/18 Noah Campos MD [address] [place] [phone] Assigned PCP 07/15/12 11/10/20 documented as of this encounter
--- OUTSIDE RECORDS SUMMARY | 2025-02-19 04:24 | XMS_ITS | Encounter Summary ---
Author Organization [facility] Address [address], [place] [address] Care Team Providers Care Meat Department Manager Name Role Phone Clinician, Not Found MD Primary Care Provider Un available Encounter Details Date Type Department Care Team (Late st Contact Info) Description 04/18/2015 Orders Only [facility] [address] [place], [place] [address] , Taran Santos MD [address] [place], [place] [address] Social History Tobacco Use Types Packs/Day Years Used Date Smoking Tobacco: Every Day Cigarettes 0.3 25 Alcohol Use Standard Drinks/Week Comments Yes 0 (1 standard drink = 0.6 oz pure alcohol) recovering alcoholic. last drink was 10/26/07 Sex and Gender Information Value Date Recorded Sex Assigned at Not on file Legal Sex Male 3:49 AM CDT Gender Identity Not on file Sexual Orientation Not on file documented as of this encounter Plan of Treatment Not on file documented as of this encounter Visit Diagnoses Not on filedocumented in this encounter Care Teams Meat Department Manager Relationship Specialty Start Date End Date Clinician, Not Found, [place] [address] PCP - General 12/07/14 documented as of this encounter
--- OUTSIDE RECORDS SUMMARY | 2025-02-19 04:24 | XMS_ITS | Encounter Summary ---
Author Organization [facility] Address [address] [place] [address] Care Team Providers Care Netsuite Developer Name Role Phone Noah Campos MD Primary Care Provider [phone] Noah Campos MD Unavailable [phone] Noah Campos MD Unavailable [phone] Encounter Details Date Type Department Care Team (Late st Contact Info) Description 06/07/2009 [facility] [address] [phone] Noah Campos MD [address] [place] [phone] [facility] Emergency Notes (Primary Dx) Social History Tobacco Use Types Packs/Day Years Used Date Smoking Tobacco: Every Day Cigarettes Smokeless Tobacco: Never Comments:1 pk every 3-4 days Alcohol Use Standard Drinks/Week Comments No 0 (1 standard drink = 0.6 oz pur e alcohol) Sex and Gender Information Value Date Recorded Sex Assigned at Not on file Legal Sex Male 3:22 AM 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 Gender Identity Not on file Sexual Orientation Not on file documented as of this encounter Plan of Treatment Not on file documented as of this encounter Visit Diagnoses Diagnosis [facility] Emergency Notes- Primary documented in this encounter Care Teams Netsuite Developer Relationship Specialty Start Date End Date Noah Campos MD [address] [place] [phone] PCP - General 11/26/01 Noah Campos MD [address] [place] [phone] PCP - Assigned PCP 04/15/10 12/14/18 Noah Campos MD [address] [place] [phone] Assigned PCP 07/15/12 11/10/20 documented as of this encounter
--- OUTSIDE RECORDS SUMMARY | 2025-02-19 04:24 | XMS_ITS | Encounter Summary ---
Author Organization [facility] Address [address] [address] Care Team Providers Care Python Programmer Name Role Phone Clinician, Not Found MD Primary Care Provider Un available Encounter Details Date Type Department Care Team (Late st Contact Info) Description 05/05/2016 Orders Only [facility] [address] [place], [place] [address] , Taran Santos MD [address] [place], [place] [phone] Social History Tobacco Use Types Packs/Day Years [...] on filedocumented in this encounter Care Teams Python Programmer Relationship Specialty Start Date End Date Clinician, Not Found, [place] [address] PCP - General 12/07/14 documented as of this encounter
--- OUTSIDE RECORDS SUMMARY | 2025-02-19 04:24 | XMS_ITS | Clinical Summary ---
Author Organization [facility] Address [address], [place] [address] Care Team Providers Care Patient Registration Specialist Name Role Phone Clinician, Not Found MD Primary Care Provider Un available Source Comments You are receiving this document as you are listed as the primary care provider,follow-up provider, or the patient has been referred to you for consultation.This is in compliance with the Medicare and[facility] [employer] EHR Incentive Program,which states Providers who transition their patient to another setting of careor provider of care or refers their patient to another provider of care shouldprovide summary care record for each transition of care or referral. [facility] Allergies No known active allergies Medications CELEXA 10MG ORAL TABSIndications :Depression with anxiety (HRC) Take one tablet by mouth every day. 30 11 12/30/2007 Active cyclobenzaprine (FLEXERIL) 5 MG tablet Take 5 mg by mouth 2 times daily as needed for Muscle spasms. 02/27/2016 Active oxyCODONE (ROXICODONE) 5 MG immediate release tablet Take 5 mg by mouth every 4 hours as needed for Pain. 02/27/2016 Active hydrOXYzine pamoate (VISTARIL) 25 MG capsule Take 1 capsule by mouth 3 times daily as needed for Itching. 30 capsule 0 05/14/2016 Active oxyCODONE-Aceta minophen (PERCOCET) 10-325 MG tablet Take 1-2 tablets by mouth every 4 hours as needed for Pain. Maximum 12 tablets/24 hours 20 tablet 0 05/30/2016 Active Active Problems Problem Noted Date Diagnosed Date Alcohol abuse, in remission 12/30/2007 Overview (06/20/2015): In treatment. ICD 10 Immunizations Immunization Administration Dates Next Due Tdap 12/30/2007 Social History Tobacco Use Types Packs/Day Years Used Date Smoking Tobacco: Every Day Cigarettes 0.3 15 Alcohol Use Standard Drinks/Week Comments Yes 3 (1 standard drink = 0.6 oz pur e alcohol) Sex and Gender Information Value Date Recorded Sex Assigned at Not on file Legal Sex Male 3:49 AM CDT Gender Identity Not on file Sexual Orientation Not on file Last Filed Vital Signs Vital Sign Reading Time Taken Comments Blood Pressure 118/74 05/17/2016 10:36 AM CDT Pulse 64 12/30/2007 10:26 AM CDT Temperature 36.6 C (97.9 F) 05/17/2016 10:36 AM CDT Respiratory Rate - - Oxygen Saturation - - Inhaled Oxygen Concentration - - Weight 77.1 kg (170 lb) 05/17/2016 10:36 AM CDT Height 170.2 cm (5' 7) 05/17/2016 10:36 AM CDT Body Mass Index 26.63 05/17/2016 10:36 AM CDT Plan of Treatment Health Maintenance Due Date Last Done Comments Colon Cancer Screening Plan Due 1961 Hep C Screening (Preventive Services) 1961 PSA Screening Discussion 1961 HIV Screening (Preventive Services) 1977 Adult Preventive Visit 1979 Cholesterol 1996 Pneumococcal Vaccine 50+ Yrs (2 of 2 - PCV) 2011 09/27/2008 Zoster/Shingles Vaccine (1 o f 2) 2011 DTaP/Tdap/Td Vaccine (2 - Tdap) 12/29/2017 12/30/2007, 04/27/1984 COVID-19 Vaccine ( - 2023-2 5 season) 2024 Influenza Vaccine (Season Ended) 2025 RSV Vaccine (1 - 1-dose 75+ series) 2036 HepA Vaccine Aged Out No longer eligi ble based on patient's age to complete this topic HepB Vaccine Aged Out No longer eligi ble based on patient's age to complete this topic Hib Vaccine Aged Out No longer eligi ble based on patient's age to complete this topic IPV (Polio) Vaccine Aged Out No longe r eligible based on patient's age to complete this topic MCV4 Vaccine Aged Out No longer eligi ble based on patient's age to complete this topic Meningococcal B Vaccine Aged Out No l onger eligible based on patient's age to complete this topic Insurance [address] Care Teams Patient Registration Specialist Relationship Specialty Start Date End Date Clinician, Not Found, [place] [address] PCP - General 12/07/14
--- OUTSIDE RECORDS SUMMARY | 2025-02-19 04:24 | XMS_ITS | Encounter Summary ---
Author Organization [facility] Address [address] [place] [address] Care Team Providers Care Agricultural Inspector Name Role Phone Noah Campos MD Primary Care Provider [phone] Noah Campos MD Unavailable [phone] Noah Campos MD Unavailable [phone] Encounter Details Date Type Department Care Team (Late st Contact Info) Description 09/04/2007 [facility] [address] [phone] Noah Campos MD [address] [place] [phone] [facility] (Primary Dx) Social History Tobacco Use Types Packs/Day Years Used Date Smoking Tobacco: Every Day Cigarettes Smokeless Tobacco: Never Comments:1 pk every 3-4 days Alcohol Use Standard Drinks/Week Comments No 0 (1 standard drink = 0.6 oz pur e alcohol) Sex and Gender Information Value Date Recorded Sex Assigned at Not on file Legal Sex Male 3:22 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 Gender Identity Not on file Sexual Orientation Not on file documented as of this encounter Plan of Treatment Not on file documented as of this encounter Visit Diagnoses Diagnosis [facility]- Primary documented in this encounter Care Teams Agricultural Inspector Relationship Specialty Start Date End Date Noha Campos MD [address] [place] [phone] PCP - General 11/26/01 Noah Campos MD [address] [place] [phone] PCP - Assigned PCP 04/15/10 12/14/18 Noah Campos MD [address] [place] [address] [phone] Assigned PCP 07/15/12 11/10/20 documented as of this encounter
--- OUTSIDE RECORDS SUMMARY | 2025-02-19 04:24 | XMS_ITS | Encounter Summary ---
Author Organization [facility] Address [address] [place] [address] Care Team Providers Care Nuclear Cardiology Technologist Name Role Phone Noah Campos MD Primary Care Provider [phone] Noah Campos MD Unavailable [phone] Noah Campos MD Unavailable [phone] Encounter Details Date Type Department Care Team (Late st Contact Info) Description 05/29/2009 [facility] [address] [phone] Noah Campos MD [address] [place] [phone] [facility] Emergency Note (Primary Dx) Social History Tobacco Use Types Packs/Day Years Used Date Smoking Tobacco: Every Day Cigarettes Smokeless Tobacco: Never Comments:1 pk every 3-4 days Alcohol Use Standard Drinks/Week Comments No 0 (1 standard drink = 0.6 oz pur e alcohol) Sex and Gender Information Value Date Recorded Sex Assigned at Not on file Legal Sex Male 3:22 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 Gender Identity Not on file Sexual Orientation Not on file documented as of this encounter Plan of Treatment Not on file documented as of this encounter Visit Diagnoses Diagnosis [facility] Emergency Note- Primary documented in this encounter Care Teams Nuclear Cardiology Technologist Relationship Specialty Start Date End Date Noah Campos MD [address] [place] [phone] PCP - General 11/26/01 Noah Campos MD [address] [place] [phone] PCP - Assigned PCP 04/15/10 12/14/18 Noah Campos MD [address] [place] [address] [phone] Assigned PCP 07/15/12 11/10/20 documented as of this encounter
--- OUTSIDE RECORDS SUMMARY | 2025-02-19 04:24 | XMS_ITS | Encounter Summary ---
Author Organization [facility] Address [address] [place] [address] Care Team Providers Care Surgical Services Asst Name Role Phone Noah Campos MD Primary Care Provider [phone] Noah Campos MD Unavailable [phone] Noah Campos MD Unavailable [phone] Encounter Details Date Type Department Care Team (Late st Contact Info) Description 05/23/2009 [facility] [address] [phone] Noah Campos MD [address] [place] [phone] [facility] Emergency Dept (Primary Dx) Social History Tobacco Use Types Packs/Day Years Used Date Smoking Tobacco: Every Day Cigarettes Smokeless Tobacco: Never Comments:1 pk every 3-4 days Alcohol Use Standard Drinks/Week Comments No 0 (1 standard drink = 0.6 oz pur e alcohol) Sex and Gender Information Value Date Recorded Sex Assigned at Not on file 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 Sex Male 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 Gender Identity Not on file Sexual Orientation Not on file documented as of this encounter Plan of Treatment Not on file documented as of this encounter Visit Diagnoses Diagnosis [facility] Emergency Dept- Primary documented in this encounter Care Teams Surgical Services Asst Relationship Specialty Start Date End Date Noah Campos MD [address] [place] [phone] PCP - General 11/26/01 Noah Campos MD [address] [place] [phone] PCP - Assigned PCP 04/15/10 12/14/18 Noah Campos MD [address] [place] [address] [phone] Assigned PCP 07/15/12 11/10/20 documented as of this encounter
--- OUTSIDE RECORDS SUMMARY | 2025-02-19 04:24 | XMS_ITS | Encounter Summary ---
Author Organization [facility] Address [address] [place] [address] Care Team Providers Care Concrete Floater Name Role Phone Noah Campos MD Primary Care Provider [phone] Noah Campos MD Unavailable [phone] Noah Campos MD Unavailable [phone] Encounter Details Date Type Department Care Team (Late st Contact Info) Description 05/19/2008 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 Gender Identity Not on file Sexual Orientation Not on file documented as of this encounter Plan of Treatment Not on file documented as of this encounter Visit Diagnoses Diagnosis [facility] Emergency Dept Rpt- Primary documented in this encounter Care Teams Concrete Floater Relationship Specialty Start Date End Date Noah Campos MD [address] [place] [phone] PCP - General 11/26/01 Noah Campos MD [address] [place] [address] [phone] PCP - Assigned PCP 04/15/10 12/14/18 Noah Campos MD [address] [place] [phone] Assigned PCP 07/15/12 11/10/20 documented as of this encounter
--- OUTSIDE RECORDS SUMMARY | 2025-02-19 04:24 | XMS_ITS | Encounter Summary ---
Author Organization [facility] Address [address] [place] [address] Care Team Providers Care Flame Cutting Machine Operator Name Role Phone Noah Campos MD Primary Care Provider [phone] Noah Campos MD Unavailable [phone] Noah Campos MD Unavailable [phone] Encounter Details Date Type Department Care Team (Late st Contact Info) Description 12/14/2008 [facility] [address] [phone] Noah Campos MD [address] [place] [phone] [facility] Emergency Dept Note (Primary Dx) Social History Tobacco Use Types Packs/Day Years Used Date Smoking Tobacco: Every Day Cigarettes Smokeless Tobacco: Never Comments:1 pk every 3-4 days Alcohol Use Standard Drinks/Week Comments No 0 (1 standard drink = 0.6 oz pur e alcohol) Sex and Gender Information Value Date Recorded Sex Assigned at Not on file 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 Sex Male 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 Gender Identity Not on file Sexual Orientation Not on file documented as of this encounter Plan of Treatment Not on file documented as of this encounter Visit Diagnoses Diagnosis [facility] Emergency Dept Note- Primary documented in this encounter Care Teams Flame Cutting Machine Operator Relationship Specialty Start Date End Date Noah Campos MD [address] [place] [phone] PCP - General 11/26/01 Noah Campos MD [address] [place] [address] [phone] PCP - Assigned PCP 04/15/10 12/14/18 Noah Campos MD [address] [place] [phone] Assigned PCP 07/15/12 11/10/20 documented as of this encounter
--- OUTSIDE RECORDS SUMMARY | 2025-02-19 04:24 | XMS_ITS | Encounter Summary ---
Author Organization [facility] Address [address], [place] [address] Care Team Providers Care Statistical Analyst Name Role Phone Clinician, Not Found MD Primary Care Provider Un available Encounter Details Date Type Department Care Team (Late st Contact Info) Description 02/12/2016 Orders Only [facility] [address] [place], [place] [address] , Taran Santos MD [address] [place], [place] [address] Social History Tobacco Use Types Packs/Day Years [...] on filedocumented in this encounter Care Teams Statistical Analyst Relationship Specialty Start Date End Date Clinician, Not Found, [place] [address] PCP - General 12/07/14 documented as of this encounter
--- OUTSIDE RECORDS SUMMARY | 2025-02-19 04:24 | XMS_ITS | Clinical Summary ---
Author Organization [facility] Address [address] [place] [address] Care Team Providers Care Secretary Of State Name Role Phone Noah Ko Primary Care Provider Unavailabl e Allergies No known active allergies Medications HYDROcodone-cullen taminophen, 5-325 mg, (NORCO) per tabletIndicatio ns:Facial laceration, initial encounter,Wrist injury, right, initial encounter Take 1-2 tablets by mouth every 4 hours if needed for Pain. 15 tablet 0 03/19/2016 Active Active Problems Problem Noted Date Diagnosed Date Kidney stones 12/11/2008 Chest pain, unspecified 10/06/2007 Adjustment disorder with mixed anxiety and depre ssed mood 09/05/2007 Alcohol abuse, episodic 09/05/2007 Encounters Date Type Department Care Team Description 01/05/2025 1:31 AM CDT - 01/05/2025 2:06 AM CDT Emergency [facility] Emergency Department [address] [place] [address] Kelechi Timmons PA Visit for wound check (Primary Dx) Discharge Disposition: Home Self Care 01/04/2025 7:38 PM CDT - 01/04/2025 9:11 PM T Emergency [facility] Emergency Department [address] [place] [address] Ashleigh Raza PA Laceration of right hand without foreign body, initial encounter (Primary Dx) Discharge Disposition: Home Self Care 01/04/2025 Travel from Last 3 Months Immunizations Immunization Administration Dates Next Due Influenza Virus, Unspecified 12/09/2008 Pneumococcal Poly,23-Valent (Pneumovax) 12/09/19 09 Tdap 01/04/2025,05/23/2009 Social History Tobacco Use Types Packs/Day Years Used Date Smoking Tobacco: Every Day Cigarettes 0.3 20 Smokeless Tobacco: Never Tobacco Cessation:Ready to Q uit: No; Counseling Given: Yes Comments:10/15 ppd Alcohol Use Standard Drinks/Week Comments Yes 0 (1 standard drink = 0.6 oz pur e alcohol) rare, 2 beers toda Interpersonal Safety Answer Date Record ed Are you being hit, kicked, p ushed or yelled at (see row info)? No 01/05/2025 Interpersonal Safety Abuse 12 - 18 Not on file 01/05/2025 Interpersonal Safety Ambulatory Vulnerability No t on file 01/05/2025 Sex and Gender Information Value Date Recorded Sex Assigned at Not on file Legal Sex Male 7:16 AM DESIGN ENGINEERING SPECIALIST Gender Identity Not on file Sexual Orientation Not on file Obstetrics History Last Filed Vital Signs Vital Sign Reading Time Taken Comments Blood Pressure 140/69 01/05/2025 1:19 AM CDT Pulse 73 01/05/2025 1:19 AM CDT Temperature 36.9 C (98.4 F) 01/05/2025 1:19 AM CDT Respiratory Rate 18 01/05/2025 1:19 AM CDT Oxygen Saturation 99% 01/05/2025 1:19 AM CDT Inhaled Oxygen Concentration - - Weight 67.3 kg (148 lb 4.8 oz) 01/05/2025 1:19 A M CDT Height 170.2 cm (5' 7) 01/05/2025 1:19 AM CDT Body Mass Index 23.23 01/05/2025 1:19 AM CDT Plan of Treatment Health Maintenance Due Date Last Done Comments Depression screening for age 12+ 1973 HIV for age 15-65 1976 Colonoscopy through age 75 2006 Lipids for age 45-75 2006 Pneumococcal series for age 50+ (2 of 2 - PCV) 12/09/2009 12/09/2008 Zoster (shingles) series for age 50+ (1 of 2) 2011 BMI (ht and wt on same day) for age 18+ 03/19/2017 0 03/19/2016, 02/10/2016 COVID-19 vaccine series ( season) 2024 Influenza Vaccine (Season Ended) 2025 12/09/19 09 Tetanus booster 01/04/2035 01/04/2025, 05/23/2009 RSV vaccine for adults or pr egnancy (1 - 1-dose 75+ series) 2036 Hepatitis C screening for age 18-79 Completed 09/05 Tdap Completed 01/04/2025, 05/23/2009 Procedures Procedure Name Priority Date/Time Associated Diagnosis Comments XR HAND 3 VIEWS RIGHT STAT 01/04/2025 6:44 PM CDT ANTI HCV Add On 09/05/2007 8:59 AM DESIGN ENGINEERING SPECIALIST from Last 3 Months or Most Recently Relevant to Health Maintenance Results * XR HAND 3 VIEWS RIGHT (01/04/2025 6:44 PM CDT) Anatomical Region Laterality Modality HANDS, HAND R Digital Radiogra phy 01/04/2025 7:20 PM CDT Narrative 01/04/2025 7:20 PM CDT For Patients: As a result of the Cures Act, medical imaging exams and procedure reports are released immediately into your electronic medical record. You may view this report before your referring provider. If you have questions, please contact your health care provider. 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 Interval carpal fusion with screw fixation. 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 Dystrophic calcification versus loose body at the dorsal aspect of the wrist. Soft tissue swelling between the thumb and 2nd digit with gauze overlying the thenar region. No definite evidence of acute fracture. No radiopaque foreign body seen. Presumed rings at the 2nd and 4th digits. Dictated by Rosalio Duckworth MD @ 01/04/2025 7:20:19 PM (Electronically Signed) Procedure Note Rosalio Duckworth MD - 01/04/2025 For Patients: As a result of the Cures Act, medical imagingexams and procedure reports are released immediately into your electronicmedical record. You may view this report before your referring provider.If you have questions, please contact your health care provider. Indication: Trauma Technique: Three views right hand Comparison: Right hand series 12/19/2013 Findings/Impression: The patient is status post resection or complete collapse of the scaphoidcompared to the prior examination. Interval carpal fusion with screwfixation. 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 Dystrophiccalcification versus loose body at the dorsal aspect of the wrist. Soft tissue swelling between the thumb and 2nd digit with gauze overlyingthe thenar region. No definite evidence of acute fracture. No radiopaqueforeign body seen. Presumed rings at the 2nd and 4th digits. Dictated by Rosalio Duckworth MD @ 01/04/2025 7:20:19 PM (Electronically Signed) us Anw Ed Triage GENERAL IMAGING Final Result * (ABNORMAL) ANTI HCV (09/05/2007 8:59 AM DESIGN ENGINEERING SPECIALIST) ANTI HCV Reactive This Reactive specimen showed a Gmhjlu-bd-Vfgj ff Ratio of > or = to 11.00 which is highly predictive (> or = to 95%) Of true Anti-HCV status. HCV RNA may detect the presence of an active HCV infection(A) [facility] Blood specimen (specimen) BLOOD SPECIMEN / Unknown 09/05/2007 8:59 AM DESIGN ENGINEERING SPECIALIST 09/05/2007 4:24 PM DESIGN ENGINEERING SPECIALIST us Rosalio Artis MD SEND OUTS Final Res ult [facility] INTERNAL ZIP [id number] [address] from Last 3 Months or Most Recently Relevant to Health Maintenance Insurance [facility] [employer] * Guarantor: [employer] Account Type Relation to Patient Date of Phone Billing Address Occ Health/Garry Self ATTN: EDILIA SOUZA [phone] [place] [id number] Advance Directives * Full Code (Latest Code Status on File) Date Activated Date Inactivated Comments 12/10/2008 11:26 PM 12/12/2008 11:36 AM * Full Code Date Activated Date Inactivated Comments 10/06/2007 9:56 PM 10/07/2007 8:05 PM * Full Code Date Activated Date Inactivated Comments 09/05/2007 1:43 AM 09/06/2007 2:04 PM Care Teams Secretary Of State Relationship Specialty Start Date End Date Noah Ko PCP - General 09/04/07
[2025-02-19 04:37] LABS: Hemoglobin* 13.5 gm/dL (13.5-17.5); Red Blood Count 4.58 m/uL (4.30-5.90); White Blood Count* 19.07 K/uL (4.50-11.00)
[2025-02-19 04:38] LABS: Hematocrit 42.7 % (37.0-53.0); Lymphocytes Percent Auto 3.2 % (20-44); Mean Corpuscular HGB Conc 32 gm/dL (32-36); Mean Corpuscular Hemoglobin 30 pg (26-34); Mean Corpuscular Volume 93 fL (80-100); Neutrophils Percent Auto 85.5 % (42.0-72.0); Platelet Count* 248 K/uL (140-440)
[2025-02-19 04:39] LABS: Basophils Percent Auto 0.1 % (0.0-3.0); Lymphocytes Absolute Auto 0.61 K/uL (0.90-2.90); Monocytes Percent Auto 9.6 % (0.0-11.0); Slide Review Reflex No
[2025-02-19 04:40] LABS: Benzodiazepines Screen Urine Negative (Negative); Cannabinoid Screen Urine POSITIVE (Negative); Cocaine Screen Urine POSITIVE (Negative); Phencyclidine Screen Urine Negative (Negative)
[2025-02-19 04:41] LABS: Amphetamine Screen Urine POSITIVE (Negative); Barbiturate Screen Urine Negative (Negative); Methadone Screen Urine Negative (Negative); Methamphetamines Screen Urine POSITIVE (Negative); Opiate Screen Urine POSITIVE (Negative); Oxycodone Screen Urine Negative (Negative); Tricyclic Antidepressant Urine Negative (Negative)
[2025-02-19 04:42] LABS: Appearance Urine Clear (Clear); Color Urine Yellow (Yellow)
[2025-02-19 04:43] LABS: Bilirubin Urine Negative (Negative); Blood Urine 3+ (Negative); Glucose Urine Negative (Negative); Ketones Urine Negative (Negative); Protein Urine 3+ (Negative); Urobilinogen Urine 0.2 (0.2-1.0)
[2025-02-19 04:44] LABS: Leukocyte Esterase Urine Negative (Negative); Nitrite Urine Negative (Negative); WBC Urine 0-2 (0-5)
[2025-02-19 04:45] LABS: Ammonia* 37.7 umol/L (13.1-30.0); Mucus Urine Few
[2025-02-19 04:46] LABS: Lactate* 9.4 mmol/L (0.5-1.9)
[2025-02-19 04:47] LABS: HCO3 VBG 22 mmol/L (21-28); PCO2 VBG 68 mmHG (40-50); PO2 VBG 30.5 mmHG (25-47); pH VBG 7.109 (7.32-7.43)
[2025-02-19 04:48] LABS: Albumin* 5.1 g/dL (3.3-5.0); Anion Gap 23 mEq/L (7-15); Blood Urea Nitrogen* 18 mg/dL (7-30); Calcium* 9.2 mg/dL (8.4-10.6); Carbon Dioxide* 19 mmol/L (20-32); Chloride* 104 mmol/L (96-114); Glucose* 93 mg/dL (60-115); Potassium* 4.5 mmol/L (3.6-5.1); Sodium* 146 mmol/L (135-149); Total Protein* 7.9 g/dL (6.0-8.3)
[2025-02-19 04:49] LABS: Alanine Aminotransferase* 169 U/L (4-50); Alkaline Phosphatase* 68 U/L (40-150); Aspartate Amino Transferase* 245 U/L (12-35); Bilirubin Total* 0.4 mg/dL (0.1-1.5); Creatine Kinase* 410 U/L (54-186); Magnesium* 2.5 mg/dL (1.5-2.6); Troponin I* 0.56 ng/mL (0.01-0.04)
[2025-02-19 04:50] LABS: Ethanol* 0.01 % (0.01-0.03)
[2025-02-19 04:51] LABS: Lactate* 3.3 mmol/L (0.5-1.9); Troponin I* 0.49 ng/mL (0.01-0.04); pH VBG 7.343 (7.32-7.43)
[2025-02-19 04:52] LABS: HCO3 VBG 24 mmol/L (21-28); PCO2 VBG 54 mmHG (40-50); PO2 VBG 44.6 mmHG (25-47)
--- NOTE | 2025-02-19 05:45 | W.PM.THH&P_ITS ---
Telehealth- H&P: HPI History of Present Illness Time Seen by Provider: 05:55 Date Seen: 02/19/25 Chief complaint: overdose Narrative: Kahlil Max is seen as an Interactive Telehealth visit. Kahlil Max is a 64 year old maleNo known significant past medical history who was brought to the emergency department via EMS for altered mental status. Patient has not been seen at [facility] before. There was no family during the ER or my visit. History is obtained from ER provider and medical record. It appears that family noticed the patient took some pills and after that became unresponsive. Per family report to EMS patient was unresponsive for 6 hours and was not waking up and they decided to call EMS. When the EMS arrived patient was initially unresponsive and hypoxic. He was given Narcan one-time dose and a few minutes later he became more responsive. He did receive total 2 doses of Narcan. Since then he has been waking up to verbal stimuli. However still remains significantly drowsy. He was initially on 10 to 15 L oxygen and has been weaned down to 2 L now. He does not appear short of breath. Patient has been transferred from ER to the floor. He is currently arousable. He denies any significant medical history including no high blood pressure, diabetes or heart disease. He denies drinking any alcohol however does admit to smoking 1 pack over 2 days. When asked about his drug use history he admits to smoking cocaine. He says he does it sometimes. He denies methamphetamine use however his UA is positive for that as well. Lab work in the emergency department showed WBC 19.07, hemoglobin 13.5, hematocrit 42.7, platelet count 248. Initial blood gas showed VBG with pH of 7.1, pCO2 68. Repeat VBG shows pH of 7.34 with [id number]. Sodium is 146, potassium 4.5, chloride 104, bicarb 19, anion gap 23, BUN 18, creatinine 21:, Lactate 9.4, repeat lactate 3.3. AST 245, ALT 169, ammonia level 37, CK4 10, initial troponin 0.56, repeat troponin 0.49, albumin 5.1. Urine drug screen is positive for amphetamines, cocaine, opioids, marijuana. In the emergency department patient did receive 2 L of IV fluids. Hospitalist service was asked admit the patient for possible drug overdose. Initially per ER report patient may have been alcoholic however patient is admitting to drug use including cocaine and smoking however denies any history of alcohol intake. Review of Systems Narrative: Patient is denying any chest pain or abdominal pain. Review of systems otherwise limited due to patient's remains drowsy. PFSH PFSH Social History Non-prescribed substance use: declined to answer Meds Home Medications and Allergies Allergies Allergy/AdvReac Type Severity Reaction Status Date / Time No Known Drug Allergies Allergy Verified 02/19/25 04:27 Exam Narrative Exam Narrative: Physical Exam GENERAL: ?vital signs reviewed, Pt remains drowsy, wakes up and answers basic questions HEENT: pupil were not checked however pt has no facial droop, he is able to shrug both shoulders and raise both arms. NECK: Supple without lymphadenopathy or thyromegaly according to nursing staff examination observation HEART: Regular rate and rhythm without any rubs, murmurs, or gallops. LUNGS: Clear to auscultation bilaterally with good air movement throughout ABDOMEN: Observation from nurse assisted exam, abdomen appears soft, nontender, and nondistended with Positive bowel sounds noted. EXTREMITIES: Unable to assess strength in detail however he is moving both arms and legs equally. SKIN:? Observed warm and dry with color normal Const Vital Signs, click to edit/add: Vital Signs - 24 hr 02/19/25 02:36 02/19/25 02:45 02/19/25 03:00 Temperature 97.1 F L Pulse Rate Pulse Rate [Pulse Oximeter] 96 99 97 Respiratory Rate 14 14 14 Blood Pressure [Right Upper Arm] 115/80 117/103 H 117/103 H Pulse Oximetry 99 99 98 Oxygen Delivery Method Ambu-Bag OxyMask OxyMask Oxygen Flow Rate 15 15 5 02/19/25 03:10 02/19/25 03:30 02/19/25 04:00 Temperature Pulse Rate Pulse Rate [Pulse Oximeter] 97 82 79 Respiratory Rate 14 16 16 Blood Pressure [Right Upper Arm] 115/80 98/72 111/78 Pulse Oximetry 96 95 96 Oxygen Delivery Method Room Air Room Air Nasal Cannula Oxygen Flow Rate 0 0 2 02/19/25 04:30 02/19/25 04:40 02/19/25 04:44 Temperature Pulse Rate 82 Pulse Rate [Pulse Oximeter] 79 Respiratory Rate 14 10 L Blood Pressure [Right Upper Arm] 114/85 Pulse Oximetry 97 96 96 Oxygen Delivery Method Nasal Cannula Nasal Cannula Oxygen Flow Rate 2 2 02/19/25 04:45 02/19/25 05:30 Temperature 97.9 F 97.9 F Pulse Rate 80 Pulse Rate [Pulse Oximeter] 79 Respiratory Rate 17 17 Blood Pressure [Right Upper Arm] 114/85 Pulse Oximetry 92 Oxygen Delivery Method Nasal Cannula Oxygen Flow Rate 2 Hospitalist - H&P: Result Labs Labs: Short CBC 02/19/25 Range/Units 03:15 WBC 19.07 H (4.50-11.00) K/uL Hgb 13.5 (13.5-17.5) gm/dL Hct 42.7 (37.0-53.0) % Plt Count 248 (140-440) K/uL BMP 02/19/25 03:15 Sodium 146 Potassium 4.5 Chloride 104 Carbon Dioxide 19 L BUN 18 Creatinine 21.0 H Glucose 93 Calcium 9.2 Cardiac Enzymes 02/19/25 02/19/25 Range/Units 03:15 04:22 Total Creatine Kinase 410 H (54-186) U/L Troponin I 0.56 H* 0.49 H* (0.01-0.04) ng/mL Liver Function 02/19/25 Range/Units 03:15 Total Bilirubin 0.4 (0.1-1.5) mg/dL AST 245 H (12-35) U/L ALT 169 H (4-50) U/L Alkaline Phosphatase 68 (40-150) U/L Albumin 5.1 H (3.3-5.0) g/dL Urine 02/19/25 Range/Units 03:15 Urine Color Yellow (Yellow) Urine Appearance Clear (Clear) Urine pH 6.0 (5.0-8.5) Ur Specific [place] 1.030 (1.000-1.030) Urine Protein 3+ A (Negative) Urine Glucose (UA) Negative (Negative) Assessment and Plan Assessment and plan (1) Acute dehydration: Status: Acute (2) Delirium, drug-induced: Status: Acute (3) Acute hypoxic respiratory failure: Status: Acute (4) Elevated troponin: Status: Acute (5) Metabolic acidosis: Status: Acute Plan Pt is 64 y/o M with no known significant PMHx who was brought to ED with unresponsiveness. # Drug Overdose with opoids, methamphetamine, cocaine # Toxic Metabolic Encephalopathy # Acute Respiratory failure initially requiring 10-15L oxygen # Lactic acidosis # Transaminitis # Hyperammonemia # Leukocytosis # CONCETTA on CKD # NSTEMI - Patient with no known past medical history was brought to the emergency department via EMS with unresponsiveness for 6 hours prior to coming in. Family reported patient ingested some pills. Urine drug screen came back positive for cocaine, opioids, methamphetamines and cannabis. Patient also admits to smoking all of these. He also admits to smoking 1pack over two days. Plan - cont with IV fluids - contn with cardiac monitoring and continuous pulse ox - cont with monitoring urine ins and out and respiratory status - repeat labs including cbc, bmp, vbg, lactate. - CT head and CXR negative - Pt initially had elevated trop likely demand ischemic from severe hypoxia and resp depression. repeat trop is lower. Will get echo to evaluate for any significant findings. f/u repeat trop. # DVT proph - SQH Patient remains critically ill. If repeat labs show any abnormality or if creatinine remains significantly elevated, patient may need to be transferred to higher level of care. Discussed case with the day hospitalist. Telehealth: Statement Statement Telehealth Visit: Today's History and Physical is provided via interactive telehealth by Chen Amaya MD.? Patient is located at [facility].? Provider is located at [facility].? Nursing staff assisted with the patient's exam. The visit being done today meets criteria for a telehealth visit and the patient or patient?s parent/guardian is aware the visit is a telehealth visit. Camera Start Time: 06:10 Camera End Time: 06:22
[2025-02-19 06:58] LABS: HCO3 VBG 24 mmol/L (21-28); Lactate Sepsis w/Reflex* 0.9 mmol/L (0.5-1.9); PCO2 VBG 51 mmHG (40-50); PO2 VBG 60.9 mmHG (25-47); pH VBG 7.289 (7.32-7.43)
[2025-02-19] MEDS: HEPARIN 5,000 UNIT/0.5 ML INJ 5000 UNIT SUBCUT ×2 (07:04→18:55)
[2025-02-19 07:07] LABS: Basophils Percent Auto 0.1 % (0.0-3.0); Hematocrit 36.9 % (37.0-53.0); Hemoglobin* 12.2 gm/dL (13.5-17.5); Immature Granulocytes Pct Auto 0.2 %; Mean Corpuscular HGB Conc 33 gm/dL (32-36); Mean Corpuscular Hemoglobin 30 pg (26-34); Mean Corpuscular Volume 89 fL (80-100); Monocytes Percent Auto 6.8 % (0.0-11.0); Neutrophils Percent Auto 88.9 % (42.0-72.0); Platelet Count* 207 K/uL (140-440); RDW Coefficient of Variation % 13.2 % (11.5-15.5); Red Blood Count 4.13 m/uL (4.30-5.90); White Blood Count* 14.91 K/uL (4.50-11.00)
[2025-02-19 07:14] LABS: Chloride* 109 mmol/L (96-114); Potassium* 4.1 mmol/L (3.6-5.1); Sodium* 143 mmol/L (135-149)
[2025-02-19 07:17] LABS: Alanine Aminotransferase* 131 U/L (4-50); Anion Gap 10 mEq/L (7-15); Aspartate Amino Transferase* 187 U/L (12-35); Bilirubin Direct* 0.3 mg/dL (0.0-0.5); Bilirubin Total* 0.3 mg/dL (0.1-1.5); Blood Urea Nitrogen* 20 mg/dL (7-30); Calcium* 8.2 mg/dL (8.4-10.6); Carbon Dioxide* 24 mmol/L (20-32); Creatine Kinase* 440 U/L (54-186); Creatinine* 1.6 mg/dL (0.5-1.5); Estimated Glomerular Filt Rate 48 ml/min; Glucose* 75 mg/dL (60-115)
[2025-02-19 07:23] LABS: Ammonia* < 8.7 umol/L (13.1-30.0)
[2025-02-19 07:32] LABS: Troponin I* 0.68 ng/mL (0.01-0.04)
[2025-02-19 07:32] LABS: Slide Review Reflex No
[2025-02-19 08:03] LABS: Creatinine* 2.1 mg/dL (0.5-1.5)
[2025-02-19 08:04] LABS: Est. Creatinine Clearance* 29.11; Estimated Glomerular Filt Rate 35 ml/min
[2025-02-19 08:05] LABS: Acetaminophen* < 10.0 ug/mL (10.0-30.0)
[2025-02-19 09:19] LABS: HCO3 VBG 24 mmol/L (21-28); PCO2 VBG 46 mmHG (40-50); PO2 VBG 96.3 mmHG (25-47); pH VBG 7.328 (7.32-7.43)
[2025-02-19 09:52] LABS: Troponin I* 0.69 ng/mL (0.01-0.04)
--- NOTE | 2025-02-19 10:57 | RESP.RT ---
Patient is able to respond appropriately and take deep breaths. It looks like he is becoming more awake. We will continue to monitor and assess.
[2025-02-19 12:57] LABS: Troponin I* 0.65 ng/mL (0.01-0.04)
[2025-02-19] MEDS: LACTATED RINGERS 1000 ML 1,000 ML 150 ML IV ×3 (14:36→20:54)
--- NOTE | 2025-02-19 15:12 | P.IMPN_ITS ---
Assessment and Plan Assessment and plan (1) Acute hypoxic respiratory failure: Problem comment: - drug induced, resolving, continue supplemental oxygen, weaning as able Status: Acute (2) Delirium, drug-induced: Problem comment: - urine tox screen positive for amphetamines, methamphetamines, cocaine, opiates and marijuana - delirium resolving, patient is now awake, able to answer questions approp riately Status: Acute (3) Acute dehydration: Problem comment: - likely due to drug use - was given several fluid boluses in the emergency department, continuing IV fluids at higher than maintenance rate due to elevated CK as below. Status: Acute (4) Elevated troponin: Problem comment: - while I suspect this is secondary to cocaine use, cannot rule out underlying heart disease. I followed troponin this morning every couple hours until it has peaked at 0.69. No need to follow further. Obtain echocardiogram. Recommend outpatient stress testing, although it is unclear if patient will be compliant. Status: Acute (5) Metabolic acidosis: Problem comment: - suspect this was secondary to elevated lactate and apnea while in drug induced delirium - resolved Status: Acute (6) Elevated lactic acid level: Problem comment: - likely secondary to cocaine use and hydration - Resolved with IV fluids Status: Acute (7) Leukocytosis: Problem comment: - unclear etiology, no obvious source of infection, suspect likely a stress response due to polydrug abuse, recheck in the morning Status: Acute (8) CONCETTA (acute kidney injury): Problem comment: - secondary to dehydration, improving with IV fluids. Since patient's troponin is now improving, will allow patient to eat and drink at will as well. Status: Acute (9) Elevated LFTs: Problem comment: - alkaline phosphatase and total bilirubin are unremarkable. I suspect this is likely cardiac as patient does have evidence of ischemia likely secondary to cocaine use. It is already starting to improve, recheck in the morning. Status: Acute (10) Elevated CK: Problem comment: - likely related to cocaine use, possible early rhabdomyolysis - level has risen slightly from 1st presentation, so I will place him on IV fluids of LR at 150 mL/hour overnight and recheck in the morning. Status: Acute Subjective Time Seen by Provider: 07:20 Date Seen: 02/19/25 Interval history: Augusto was admitted to the hospital after starting to arouse from an unresponsive episode after taking some pills. He had been brought here by EMS and was initially unresponsive and hypoxic. He started to arouse after 1 time dose of Narcan and has been responsive since then. Although he was initially requiring tended 15 L of oxygen, this has been able to be weaned down and he is now satting in the mid 90s on 1-2 L oxygen via nasal cannula. When talking with him, I noted that he has some concerning findings on his labs which include an elevated troponin, tox screen positive for amphetamines, cocaine, marijuana, and opiates. He tells me that the cocaine that he use most been laced. He denies chest pain or shortness of breath. He notes that he is very thirsty and wants something to drink. He tells me he has been hospitalized before after taking cocaine, but the last time he used cocaine before this was 2 years ago. Other than thirst he has no complaints. Exam Narrative: Exam Narrative: General: No acute distress. Sleeping, arousable and able to answer questions appropriately. Oriented to self, day, situation. Is in a hospital, but did not know he was in [place]. No pallor. No jaundice. Disheveled, generally covered with dirt and grime, especially in the hands. Oropharynx: Clear. Mucous membranes moist. Cardiovascular: Regular rate and rhythm. No murmurs, gallops, or rubs. Respiratory: Clear to auscultation bilaterally. No wheezes or crackles. Abdomen: Bowel sounds present. Soft, nondistended, nontender. Extremities: Fingers are clubbed. No lower extremity edema. Const: Vital Signs, click to edit/add: Vital Signs - 24 hr 02/19/25 02:36 02/19/25 02:45 02/19/25 03:00 Temperature 97.1 F L Pulse Rate Pulse Rate [Pulse Oximeter] 96 99 97 Respiratory Rate 14 14 14 Blood Pressure [Le ft Arm] Blood Pressure [Ri ght Upper Arm] 115/80 117/103 H 117/103 H Pulse Oximetry 99 99 98 Oxygen Delivery Me thod Ambu-Bag OxyMask OxyMask Oxygen Flow Rate 15 15 5 02/19/25 03:10 02/19/25 03:30 02/19/25 04:00 Temperature Pulse Rate Pulse Rate [Pulse Oximeter] 97 82 79 Respiratory Rate 14 16 16 Blood Pressure [Le ft Arm] Blood Pressure [Ri ght Upper Arm] 115/80 98/72 111/78 Pulse Oximetry 96 95 96 Oxygen Delivery Me thod Room Air Room Air Nasal Cannula Oxygen Flow Rate 0 0 2 02/19/25 04:30 02/19/25 04:40 02/19/25 04:44 Temperature Pulse Rate 82 Pulse Rate [Pulse Oximeter] 79 Respiratory Rate 14 10 L Blood Pressure [Le ft Arm] Blood Pressure [Ri ght Upper Arm] 114/85 Pulse Oximetry 97 96 96 Oxygen Delivery Me thod Nasal Cannula Nasal Cannula Oxygen Flow Rate 2 2 02/19/25 04:45 02/19/25 05:30 02/19/25 05:35 Temperature 97.9 F 97.9 F 98.1 F Pulse Rate 80 Pulse Rate [Pulse Oximeter] 79 82 Respiratory Rate 17 17 14 Blood Pressure [Le ft Arm] 116/85 Blood Pressure [Ri ght Upper Arm] 114/85 Pulse Oximetry 92 92 Oxygen Delivery Me thod Nasal Cannula Nasal Cannula Oxygen Flow Rate 2 2 02/19/25 05:35 02/19/25 06:45 02/19/25 07:00 Temperature 98.3 F Pulse Rate 81 Pulse Rate [Pulse Oximeter] 82 Respiratory Rate 14 16 Blood Pressure [Le ft Arm] 132/92 H Blood Pressure [Ri ght Upper Arm] Pulse Oximetry 92 97 Oxygen Delivery Me thod Nasal Cannula Nasal Cannula Oxygen Flow Rate 2 2 02/19/25 07:00 02/19/25 11:00 Temperature 98.4 F Pulse Rate Pulse Rate [Pulse Oximeter] 82 Respiratory Rate 16 Blood Pressure [Le ft Arm] 149/92 H Blood Pressure [Ri ght Upper Arm] Pulse Oximetry 97 98 Oxygen Delivery Me thod Nasal Cannula Oxygen Flow Rate 1 Labs Labs: Laboratory Results - last 24 hr 02/19/25 02/19/25 02/19/25 03:15 04:22 06:53 WBC 19.07 H RBC 4.58 Hgb 13.5 Hct 42.7 MCV 93 MCH 30 MCHC 32 RDW Coeff of Kirit Plt Count 248 Neut % (Auto) 85.5 H Lymph % (Auto) 3.2 L [place] % (Auto) 9.6 Eos % (Auto) 0.0 Baso % (Auto) 0.1 Neut # (Auto) 16.30 H Lymph # (Auto) 0.61 L [place] # (Auto) 1.80 H Eos # (Auto) 0.00 Baso # (Auto) 0.00 Abs Immat Gran (auto) Imm/Tot Granulo (auto) VBG pH 7.109 L* 7.343 7.289 L VBG pCO2 68 H* 54 H 51 H VBG pO2 30.5 44.6 60.9 H VBG HCO3 22 24 24 Sodium 146 143 Potassium 4.5 4.1 Chloride 104 109 Carbon Dioxide 19 L 24 Anion Gap 23 H 10 BUN 18 20 Creatinine 2.1 H 1.6 H Estimated Creat Clear 29.11 38.20 Estimated GFR 35 48 Glucose 93 75 Lactate 9.4 H* 3.3 H 0.9 Calcium 9.2 8.2 L Magnesium 2.5 Total Bilirubin 0.4 0.3 Direct Bilirubin 0.3 AST 245 H 187 H ALT 169 H 131 H Alkaline Phosphatase 68 Ammonia 37.7 H < 8.7 L Total Creatine Kinase 410 H 440 H Troponin I 0.56 H* 0.49 H* 0.68 H* Total Protein 7.9 Albumin 5.1 H Urine Color Yellow Urine Appearance Clear Urine pH 6.0 Ur Specific [place] 1.030 Urine Protein 3+ A Urine Glucose (UA) Negative Urine Ketones Negative Urine Blood 3+ A Urine Nitrite Negative Urine Bilirubin Negative Urine Urobilinogen 0.2 Ur Leukocyte Esterase Negative Urine RBC 5-10 A Urine WBC 0-2 Ur Squamous Epith Cells None Urine Bacteria None Urine Mucus Few A Urine Opiates Screen POSITIVE A Ur Oxycodone Screen Negative Urine Methadone Screen Negative Acetaminophen 10.0 < 10.0 Ur Barbiturates Screen Negative U Tricyclic Antidepress Negative Ur Phencyclidine Scrn Negative Ur Amphetamines Screen POSITIVE A U Methamphetamines Scrn POSITIVE A U Benzodiazepines Scrn Negative Urine Cocaine Screen POSITIVE A U Marijuana (THC) Screen POSITIVE A Ur Drug Screen Comment See Note Ethyl Alcohol 0.01 Lab Acknowledgement 02/19/25 02/19/25 02/19/25 06:58 07:43 09:15 WBC 14.91 H RBC 4.13 L Hgb 12.2 L Hct 36.9 L MCV 89 MCH 30 MCHC 33 RDW Coeff of Kirit 13.2 Plt Count 207 Neut % (Auto) 88.9 H Lymph % (Auto) 4.0 L [place] % (Auto) 6.8 Eos % (Auto) 0.0 Baso % (Auto) 0.1 Neut # (Auto) 13.30 H Lymph # (Auto) 0.60 L [place] # (Auto) 1.00 H Eos # (Auto) 0.00 Baso # (Auto) 0.00 Abs Immat Gran (auto) 0.00 Imm/Tot Granulo (auto) 0.2 VBG pH 7.328 VBG pCO2 46 VBG pO2 96.3 H VBG HCO3 24 Sodium Potassium Chloride Carbon Dioxide Anion Gap BUN Creatinine Estimated Creat Clear Estimated GFR Glucose Lactate Calcium Magnesium Total Bilirubin Direct Bilirubin AST ALT Alkaline Phosphatase Ammonia Total Creatine Kinase Troponin I 0.69 H* Total Protein Albumin Urine Color Urine Appearance Urine pH Ur Specific [place] Urine Protein Urine Glucose (UA) Urine Ketones Urine Blood Urine Nitrite Urine Bilirubin Urine Urobilinogen Ur Leukocyte Esterase Urine RBC Urine WBC Ur Squamous Epith Cells Urine Bacteria Urine Mucus Urine Opiates Screen Ur Oxycodone Screen Urine Methadone Screen Acetaminophen Ur Barbiturates Screen U Tricyclic Antidepress Ur Phencyclidine Scrn Ur Amphetamines Screen U Methamphetamines Scrn U Benzodiazepines Scrn Urine Cocaine Screen U Marijuana (THC) Screen Ur Drug Screen Comment Ethyl Alcohol Lab Acknowledgement Test Added 02/19/25 12:20 WBC RBC Hgb Hct MCV MCH MCHC RDW Coeff of Kirit Plt Count Neut % (Auto) Lymph % (Auto) [place] % (Auto) Eos % (Auto) Baso % (Auto) Neut # (Auto) Lymph # (Auto) [place] # (Auto) Eos # (Auto) Baso # (Auto) Abs Immat Gran (auto) Imm/Tot Granulo (auto) VBG pH VBG pCO2 VBG pO2 VBG HCO3 Sodium Potassium Chloride Carbon Dioxide Anion Gap BUN Creatinine Estimated Creat Clear Estimated GFR Glucose Lactate Calcium Magnesium Total Bilirubin Direct Bilirubin AST ALT Alkaline Phosphatase Ammonia Total Creatine Kinase Troponin I 0.65 H* Total Protein Albumin Urine Color Urine Appearance Urine pH Ur Specific [place] Urine Protein Urine Glucose (UA) Urine Ketones Urine Blood Urine Nitrite Urine Bilirubin Urine Urobilinogen Ur Leukocyte Esterase Urine RBC Urine WBC Ur Squamous Epith Cells Urine Bacteria Urine Mucus Urine Opiates Screen Ur Oxycodone Screen Urine Methadone Screen Acetaminophen Ur Barbiturates Screen U Tricyclic Antidepress Ur Phencyclidine Scrn Ur Amphetamines Screen U Methamphetamines Scrn U Benzodiazepines Scrn Urine Cocaine Screen U Marijuana (THC) Screen Ur Drug Screen Comment Ethyl Alcohol Lab Acknowledgement
[2025-02-19] MEDS: SODIUM CHLORIDE 0.9 % (FLUSH) 10 ML SYRINGE 5 ML IVF (20:28)
[2025-02-20] VITALS (7 sets, daily range): BP systolic 150–181; BP diastolic 100–117; PULSE 62–80; RESP 16–20; TEMP 36.4–37.7; O2SAT 89–95
[2025-02-20] MEDS: LACTATED RINGERS 1000 ML 1,000 ML 150 ML IV ×2 (03:46→11:11)
--- NOTE | 2025-02-20 05:06 | PC.NURSE ---
Shift note: Patient alert and oriented. SBA in room. Baker removed at 2049 per MD order. Patient has since been to the BR 2x with total urine output of 550. No agitation, SOB, sweating noted. Patient uses prince light appropriately. Vitally stable. Patient has had adequate sleep.
[2025-02-20] MEDS: HEPARIN 5,000 UNIT/0.5 ML INJ 5000 UNIT SUBCUT ×2 (06:30→20:19)
[2025-02-20 06:36] LABS: Basophils Percent Auto 0.1 % (0.0-3.0); Eosinophils Percent Auto 0.3 % (0.0-7.0); Hematocrit 39.2 % (37.0-53.0); Hemoglobin* 13.2 gm/dL (13.5-17.5); Lymphocytes Percent Auto 9.2 % (20-44); Mean Corpuscular HGB Conc 34 gm/dL (32-36); Mean Corpuscular Hemoglobin 30 pg (26-34); Mean Corpuscular Volume 88 fL (80-100); Neutrophils Percent Auto 80.4 % (42.0-72.0); Platelet Count* 208 K/uL (140-440); Red Blood Count 4.46 m/uL (4.30-5.90); White Blood Count* 11.81 K/uL (4.50-11.00)
[2025-02-20 06:38] LABS: Slide Review Reflex No
[2025-02-20 07:00] LABS: INR 1.02 (0.91-1.10); Prothrombin Time 14.2 Seconds
[2025-02-20 07:11] LABS: Chloride* 97 mmol/L (96-114)
[2025-02-20 07:12] LABS: Albumin* 4.2 g/dL (3.3-5.0); Potassium* 4.3 mmol/L (3.6-5.1); Sodium* 134 mmol/L (135-149)
[2025-02-20 07:14] LABS: Anion Gap 10 mEq/L (7-15); Blood Urea Nitrogen* 22 mg/dL (7-30); Carbon Dioxide* 27 mmol/L (20-32); Creatinine* 0.9 mg/dL (0.5-1.5); Est. Creatinine Clearance* 68.23; Estimated Glomerular Filt Rate 96 ml/min
[2025-02-20 07:15] LABS: Alanine Aminotransferase* 93 U/L (4-50); Alkaline Phosphatase* 64 U/L (40-150); Aspartate Amino Transferase* 99 U/L (12-35); Bilirubin Total* 0.6 mg/dL (0.1-1.5); Calcium* 8.5 mg/dL (8.4-10.6); Creatine Kinase* 606 U/L (54-186); Glucose* 88 mg/dL (60-115); Total Protein* 6.8 g/dL (6.0-8.3)
[2025-02-20] MEDS: cloNIDine HCL 0.1 MG TABLET PO ×3 (08:37→21:22)
[2025-02-20] MEDS: SODIUM CHLORIDE 0.9 % (FLUSH) 10 ML SYRINGE 5 ML IVF ×2 (08:45→21:24)
--- NOTE | 2025-02-20 13:40 | P.IMPN_ITS ---
Assessment and Plan Assessment and plan (1) Opioid withdrawal: Problem comment: - 02/20 Mild, give one dose clonidine 0.1, follow symptoms. Status: Acute (2) Delirium, drug-induced: Problem comment: - urine tox screen positive for amphetamines, methamphetamines, cocaine, opiates and marijuana - 02/19 delirium resolving, patient is now awake, able to answer questions appropriately - 02/20 improving, but now going through opioid withdrawal, see below Status: Acute (3) Elevated CK: Problem comment: - likely related to cocaine use, possible early rhabdomyolysis - 02/19 level has risen slightly from 1st presentation, so I will place him on IV fluids of LR at 150 mL/hour overnight and recheck in the morning. - 02/20 Continuing to rise, Cr improving, continue IVF@ 150cc/hr, recheck CK in am Status: Acute (4) Elevated troponin: Problem comment: - 02/19 while I suspect this is secondary to cocaine use, cannot rule out underlying heart disease. I followed troponin this morning every couple hours until it has peaked at 0.69. No need to follow further. Obtain echocardiogram. Consider outpatient stress testing, although it is unclear if patient will be compliant. - 02/20 No CP or SOB. ECHO reassuring. I spoke with Dr. Ochoa who did not think this patient needed stress test, but could f/u cardiology as outpatient. Status: Acute (5) Leukocytosis: Problem comment: - 02/19 unclear etiology, no obvious source of infection, suspect likely a stress response due to polydrug abuse, recheck in the morning - 02/20 improving, no obvious source of infection Status: Acute (6) Elevated LFTs: Problem comment: - 02/19 alkaline phosphatase and total bilirubin are unremarkable. I suspect this is likely cardiac as patient does have evidence of ischemia likely secondary to cocaine use. It is already starting to improve, recheck in the morning. - 02/20 improving. I suspect this was due to cardiac ischemia. Status: Acute (7) Acute hypoxic respiratory failure: Problem comment: - drug induced, resolving, continue supplemental oxygen, weaning as able Status: Resolved (8) Metabolic acidosis: Problem comment: - suspect this was secondary to elevated lactate and apnea while in drug induced delirium - resolved Status: Resolved (9) Acute dehydration: Problem comment: - likely due to drug use - 02/19 was given several fluid boluses in the emergency department, continuing IV fluids at higher than maintenance rate due to elevated CK as below. - 02/20 continuing IVF for possible rhabdo, as below Status: Resolved (10) CONCETTA (acute kidney injury): Problem comment: - 02/19 secondary to dehydration, improving with IV fluids. Since patient's troponin is now improving, will allow patient to eat and drink at will as well. - 02/20 Cr 2.1 -> 1.6 -> 0.9, resolved. Status: Resolved (11) Elevated lactic acid level: Problem comment: - likely secondary to cocaine use and hydration - Resolved with IV fluids Status: Resolved Subjective Time Seen by Provider: 08:00 Date Seen: 02/20/25 Interval history: Augusto tells me he feels partly cloudy. He complains of abdominal pain. His nurse is concerned that he is becoming more diaphoretic and hypertensive this morning. Exam Narrative: Exam Narrative: General: No acute distress. Diaphoretic. Sleeping, arousable and able to answer questions appropriately. Oriented x 3. Oropharynx: Clear. Mucous membranes moist. Cardiovascular: Regular rate and rhythm. No murmurs, gallops, or rubs. Respiratory: Clear to auscultation bilaterally. No wheezes or crackles. Abdomen: Bowel sounds present. Soft, nondistended, nontender. Const: Vital Signs, click to edit/add: Vital Signs - 24 hr 02/19/25 15:00 02/19/25 15:00 02/19/25 15:00 Temperature 98.7 F Pulse Rate Pulse Rate [Left B rachial] Pulse Rate [Pulse Oximeter] 82 78 Respiratory Rate 16 16 Blood Pressure Blood Pressure [Le ft Arm] Pulse Oximetry 98 94 Oxygen Delivery Me thod Room Air 02/19/25 15:00 02/19/25 19:00 02/19/25 22:50 Temperature 97.6 F Pulse Rate 71 Pulse Rate [Left B rachial] Pulse Rate [Pulse Oximeter] 81 Respiratory Rate 16 Blood Pressure Blood Pressure [Le ft Arm] 147/108 H Pulse Oximetry 94 91 Oxygen Delivery Me thod Room Air 02/19/25 22:50 02/19/25 22:50 02/19/25 23:00 Temperature 97.7 F Pulse Rate 64 Pulse Rate [Left B rachial] Pulse Rate [Pulse Oximeter] 65 65 Respiratory Rate 16 16 Blood Pressure Blood Pressure [Le ft Arm] 155/102 H Pulse Oximetry 90 Oxygen Delivery Me thod Room Air 02/20/25 02:13 02/20/25 07:00 02/20/25 07:00 Temperature 97.6 F 98.2 F Pulse Rate Pulse Rate [Left B rachial] 71 Pulse Rate [Pulse Oximeter] 71 Respiratory Rate 16 20 Blood Pressure Blood Pressure [Le ft Arm] 161/103 H 181/104 H Pulse Oximetry 89 90 89 Oxygen Delivery Me thod Room Air Room Air 02/20/25 07:00 02/20/25 09:36 02/20/25 11:00 Temperature 98.3 F Pulse Rate 62 63 Pulse Rate [Left B rachial] 63 Pulse Rate [Pulse Oximeter] Respiratory Rate 16 Blood Pressure 164/100 H Blood Pressure [Le ft Arm] 164/101 H Pulse Oximetry 94 92 Oxygen Delivery Me thod Room Air Room Air Labs Labs: Laboratory Results - last 24 hr 02/20/25 06:28 WBC 11.81 H RBC 4.46 Hgb 13.2 L Hct 39.2 MCV 88 MCH 30 MCHC 34 RDW Coeff of Kirit 13.0 Plt Count 208 Neut % (Auto) 80.4 H Lymph % (Auto) 9.2 L [place] % (Auto) 9.0 Eos % (Auto) 0.3 Baso % (Auto) 0.1 Neut # (Auto) 9.50 H Lymph # (Auto) 1.10 [place] # (Auto) 1.10 H Eos # (Auto) 0.00 Baso # (Auto) 0.00 Abs Immat Gran (auto) 0.10 Imm/Tot Granulo (auto) 1.0 INR 1.02 Sodium 134 L Potassium 4.3 Chloride 97 Carbon Dioxide 27 Anion Gap 10 BUN 22 Creatinine 0.9 Estimated Creat Clear 68.23 Estimated GFR 96 Glucose 88 Calcium 8.5 Total Bilirubin 0.6 AST 99 H ALT 93 H Alkaline Phosphatase 64 Total Creatine Kinase 606 H Total Protein 6.8 Albumin 4.2 02/19/25 ECHO: Normal left ventricular size, mildly increased wall thickness, normal global systolic function, calculated EF 71%. Right ventricular cavity size is normal, global systolic RV function is normal. Normal left atrium size. Aortic valve is normal and trileaflet, no stenosis and no regurgitation. The mitral valve is normal, trace mitral regurgitation. Tricuspid valve is normal, trace tricuspid regurgitation. No pericardial effusion.
[2025-02-20 16:59] LABS: Sodium* 131 mmol/L (135-149)
[2025-02-20 17:02] LABS: Creatine Kinase* 429 U/L (54-186)
[2025-02-20] MEDS: 0.9 % SODIUM CHLORIDE 1000 ml 1,000 ML 75 ML IV (17:42)
--- NOTE | 2025-02-20 18:14 | PC.NURSE ---
End of Shift Note: Patient slept most of the morning away. Did not take in anything for breakfast. Has a couple of bites for lunch and now at dinner feels he could eat more. He is starting to have diarrhea as he appears to be going through opiate withdrawl s/s diaphortic b/p is elevated, nausea, diarrhea. Has received a couple dose of clonidine for his b/p. Will see if hospitalist would like us to send a stool sample before asking for immodium. Appears alert and orientated. Did have a shower x2 due to sweating this am and this afternoon was inc of stool. Will continue to monitor until next shift arrives.
[2025-02-20] MEDS: ONDANSETRON ODT 4 MG TAB PO (21:22)
[2025-02-21] MEDS: NICOTINE 14 mg PATCH 1 PATCH TRANSDERMA (01:26)
[2025-02-21 03:00] VITALS: BP 152/109; PULSE 81; RESP 18; TEMP 36.7; O2SAT 93
[2025-02-21 06:01] LABS: Basophils Absolute Auto 0.02 K/uL (0.00-0.30); Basophils Percent Auto 0.2 % (0.0-3.0); Eosinophils Absolute Auto 0.07 K/uL (0.00-0.50); Eosinophils Percent Auto 0.7 % (0.0-7.0); Hematocrit 39.3 % (37.0-53.0); Hemoglobin* 13.4 gm/dL (13.5-17.5); Immature Granulocytes Abs Auto 0.01 K/uL (0.00-0.30); Immature Granulocytes Pct Auto 0.1 %; Lymphocytes Percent Auto 15.1 % (20-44); Mean Corpuscular HGB Conc 34 gm/dL (32-36); Mean Corpuscular Hemoglobin 29 pg (26-34); Mean Corpuscular Volume 86 fL (80-100); Monocytes Percent Auto 10.2 % (0.0-11.0); Neutrophils Percent Auto 73.7 % (42.0-72.0); Platelet Count* 211 K/uL (140-440); RDW Coefficient of Variation % 12.8 % (11.5-15.5); Red Blood Count 4.57 m/uL (4.30-5.90); White Blood Count* 10.65 K/uL (4.50-11.00)
[2025-02-21 06:03] LABS: Slide Review Reflex No
[2025-02-21 06:14] LABS: Albumin* 3.7 g/dL (3.3-5.0); Chloride* 102 mmol/L (96-114); Potassium* 3.6 mmol/L (3.6-5.1); Sodium* 135 mmol/L (135-149)
[2025-02-21 06:16] LABS: Blood Urea Nitrogen* 13 mg/dL (7-30); Creatinine* 0.8 mg/dL (0.5-1.5); Est. Creatinine Clearance* 68.23; Estimated Glomerular Filt Rate 99 ml/min
[2025-02-21 06:17] LABS: Alanine Aminotransferase* 61 U/L (4-50); Alkaline Phosphatase* 65 U/L (40-150); Anion Gap 3 mEq/L (7-15); Aspartate Amino Transferase* 49 U/L (12-35); Bilirubin Total* 0.4 mg/dL (0.1-1.5); Calcium* 8.4 mg/dL (8.4-10.6); Carbon Dioxide* 30 mmol/L (20-32); Creatine Kinase* 213 U/L (54-186); Glucose* 113 mg/dL (60-115); Total Protein* 6.1 g/dL (6.0-8.3)
[2025-02-21 07:00] VITALS: BP 148/93; PULSE 75; PULSE 76; RESP 16; TEMP 36.7; O2SAT 94
--- NOTE | 2025-02-21 07:52 | PC.NURSE ---
Pt alert, oriented and vitally stable. SBA though impulsive, bed alarm on. Pt denies pain, nausea. IV patent. Pt in bed, appears to be resting call light within reach.?
[2025-02-21] MEDS: HEPARIN 5,000 UNIT/0.5 ML INJ 5000 UNIT SUBCUT (08:09)
[2025-02-21] MEDS: cloNIDine HCL 0.1 MG TABLET PO (08:50)
[2025-02-21] MEDS: SODIUM CHLORIDE 0.9 % (FLUSH) 10 ML SYRINGE 5 ML IVF (08:55)
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
--- NOTE | 2025-02-21 10:19 | P.DS_ITS ---
DS: Providers Provider Time Seen by Provider: 09:40 Date Seen: 02/21/25 Date of admission: 02/19/25 06:45 Primary care physician: Not a Local Provider Admitting Clinician: Chen Amaya MD Attending Physician on discharge: Tammy Leigh MD Date of Discharge: 02/21/25 DS: Diagnosis Discharge Diagnosis (1) Delirium, drug-induced: Status: Acute Problem details: - urine tox screen positive for amphetamines, methamphetamines, cocaine, opiates and marijuana - 02/19 delirium resolving, patient is now awake, able to answer questions a ppropriately - 02/20 improving, but now going through opioid withdrawal, see below - 02/21 resolved (2) Opioid withdrawal: Status: Acute Problem details: - 02/20 Mild, give one dose clonidine 0.1, follow symptoms. - 02/21 resolved (3) Elevated troponin: Status: Acute Problem details: - 02/19 while I suspect this is secondary to cocaine use, cannot rule out underlying heart disease. I followed troponin this morning every couple hours until it has peaked at 0.69. No need to follow further. Obtain echocardiogram. Consider outpatient stress testing, although it is unclear if patient will be compliant. - 02/20 No CP or SOB. ECHO reassuring. I spoke with Dr. Ochoa who did not think this patient needed stress test, but could f/u cardiology as outpatient. (4) Elevated CK: Status: Acute Problem details: - likely related to cocaine use, possible early rhabdomyolysis - 02/19 level has risen slightly from 1st presentation, so I will place him on IV fluids of LR at 150 mL/hour overnight and recheck in the morning. - 02/20 Continuing to rise, Cr improving, continue IVF@ 150cc/hr, recheck CK in am - 02/21 CK improving. Stop IVF. Okay to d/c home. (5) Elevated LFTs: Status: Acute Problem details: - 02/19 alkaline phosphatase and total bilirubin are unremarkable. I suspect this is likely cardiac as patient does have evidence of ischemia likely secondary to cocaine use. It is already starting to improve, recheck in the morning. - 02/20 improving. I suspect this was due to cardiac ischemia. - 02/21 continues to improve. Suspect this was cardiac. F/u with PCP (establish) as outpatient. (6) Leukocytosis: Status: Resolved Problem details: - 02/19 unclear etiology, no obvious source of infection, suspect likely a stress response due to polydrug abuse, recheck in the morning - 02/20 improving, no obvious source of infection - 02/21 resolved (7) CONCETTA (acute kidney injury): Status: Resolved Problem details: - 02/19 secondary to dehydration, improving with IV fluids. Since patient's troponin is now improving, will allow patient to eat and drink at will as well. - 02/20 Cr 2.1 -> 1.6 -> 0.9, resolved. - 02/21 Cr 0.8 (8) Elevated lactic acid level: Status: Resolved Problem details: - likely secondary to cocaine use and hydration - Resolved with IV fluids (9) Acute dehydration: Status: Resolved Problem details: - likely due to drug use - 02/19 was given several fluid boluses in the emergency department, continuing IV fluids at higher than maintenance rate due to elevated CK as below. - 02/20 continuing IVF for possible rhabdo, as below (10) Acute hypoxic respiratory failure: Status: Resolved Problem details: - drug induced, resolving, continue supplemental oxygen, weaning as able (11) Metabolic acidosis: Status: Resolved Problem details: - suspect this was secondary to elevated lactate and apnea while in drug induced delirium - resolved DS: Summary Hospital Course Hospital Course: Per H&P: Augusto was admitted to the hospital after starting to arouse from an unresponsive episode after taking some pills. He had been brought here by EMS and was initially unresponsive and hypoxic. He started to arouse after 1 time dose of Narcan and has been responsive since then. Although he was initially requiring tended 15 L of oxygen, this has been able to be weaned down and he is now satting in the mid 90s on 1-2 L oxygen via nasal cannula. When talking with jazmine im, I noted that he has some concerning findings on his labs which include an elevated troponin, tox screen positive for amphetamines, cocaine, marijuana, and opiates. He tells me that the cocaine that he use most been laced. He denies chest pain or shortness of breath. He notes that he is very thirsty and wants something to drink. He tells me he has been hospitalized before after taking cocaine, but the last time he used cocaine before this was 2 years ago. Other than thirst he has no complaints. He had no CP or SOB. EKG was reassuring. Troponin peaked at 0.69. AST/ALT and CK also elevated, likely due to cardiac ischemia from cocaine use. He also went through mild - moderate opiate withdrawal that has now resolved after several doses of clonidine. He is in improved and stable condition. IVF stopped now that CK is down-trending. See diagnoses above for details. D/c home. Establish with PCP in a week, consider referral to cardiology clinic. Time Spent with Patient Time attestation: Total time spent providing and/or coordinating discharge services: Today I spent 40 minutes seeing the patient, completing the discharge, reviewing [facility] and [facility] notes/diagnostics/labs, discussing the care plan with our care team that includes social work, PT/OT, pharmacy, RT, longterm and documenting my impressions and plan in the medical record. Exam Narrative: Exam Narrative: General: No acute distress. Awake, alert, oriented x 3. Oropharynx: Clear. Mucous membranes moist. Cardiovascular: Regular rate and rhythm. No murmurs, gallops, or rubs. Respiratory: Clear to auscultation bilaterally. No wheezes or crackles. Abdomen: Bowel sounds present. Soft, nondistended, nontender. Const: Vital Signs, click to edit/add: Vital Signs - 24 hr 02/20/25 11:00 02/20/25 15:00 02/20/25 15:00 Temperature 98.3 F Pulse Rate 66 Pulse Rate [Left B rachial] 63 Pulse Rate [Pulse Oximeter] Respiratory Rate 16 Blood Pressure [Le ft Arm] 164/101 H Pulse Oximetry 92 92 Oxygen Delivery Me thod Room Air 02/20/25 15:00 02/20/25 19:00 02/20/25 23:00 Temperature 99.9 F H 98.2 F 97.6 F Pulse Rate Pulse Rate [Left B rachial] 68 74 Pulse Rate [Pulse Oximeter] 80 Respiratory Rate 20 18 16 Blood Pressure [Le ft Arm] 164/117 H 150/104 H 160/109 H Pulse Oximetry 94 91 95 Oxygen Delivery Me thod Room Air Room Air Room Air 02/20/25 23:00 02/20/25 23:00 02/20/25 23:00 Temperature Pulse Rate 68 Pulse Rate [Left B rachial] Pulse Rate [Pulse Oximeter] 80 Respiratory Rate 16 Blood Pressure [Le ft Arm] Pulse Oximetry 90 Oxygen Delivery Me thod 05/13/25 03:00 02/21/25 07:00 02/21/25 07:00 Temperature 98.1 F Pulse Rate Pulse Rate [Left B rachial] 76 Pulse Rate [Pulse Oximeter] 81 Respiratory Rate 18 16 Blood Pressure [Le ft Arm] 152/109 H Pulse Oximetry 93 94 Oxygen Delivery Me thod Room Air 02/21/25 07:00 02/21/25 07:00 Temperature 98.1 F Pulse Rate 75 Pulse Rate [Left B rachial] 76 Pulse Rate [Pulse Oximeter] Respiratory Rate 16 Blood Pressure [Le ft Arm] 148/93 H Pulse Oximetry 94 Oxygen Delivery Me thod Room Air DS: Data Data Completed and Pending Completed studies during hospitalization: 02/19/2025 EKG: Normal sinus rhythm, 95 beats per minute, possible left atrial enlargement, low-voltage QRS. 02/19/25 ECHO: Normal left ventricular size, mildly increased wall thickness, normal global systolic function, calculated EF 71%. Right ventricular cavity size is normal, global systolic RV function is normal. Normal left atrium size. Aortic valve is normal and trileaflet, no stenosis and no regurgitation. The mitral valve is normal, trace mitral regurgitation. Tricuspid valve is normal, trace tricuspid regurgitation. No pericardial effusion. 02/19/2025 EKG: Normal sinus rhythm, 79 beats per minute, normal EKG. Ordering Physician: Shawna Bermudez M.D. Date of Service: 02/19/25 Procedure(s): XR chest 1V portable Accession Number(s): [id number] cc: Provider,Not a Local; Shawna Bermudez M.D.~ Patient: ISABELLE GRAFF Facility: [facility] Site Site : 1960 Study: XRay-Chest 2V-02/19/2025 3:12:39 AM Ordering Physician: Shawna Bermudez Final Report: Indication: Shortness of breath Technique: Single view of the chest Comparison: Chest radiograph performed 06/11/2017 Findings/Impression: Prominent central and peripheral interstitial markings, question volume overload. Dictated by Param Lentz MD @ 02/19/2025 3:40:17 AM (Electronic Signature) Dictated By: Param Lentz MD Signed By: 02/20/25 0753 DD/ 1540 TD/TT: 02/20/25 075 Resident Care Technician: MACKENZIE Ordering Physician: Shawna Bermudez M.D. Date of Service: 02/19/25 Procedure(s): CT head/brain wo con Accession Number(s): [id number] cc: Provider,Not a Local; Shawna Bermudez M.D.~ Patient: ISABELLE GRAFF Facility: [facility] Site Site : 1960 Study: CT-Head WITHOUT-02/19/2025 3:27:55 AM Ordering Physician: Aidan Matos Final Report: Indication: Altered mental status Technique: Noncontrast CT through the head with multiplanar reformats Comparison: None Findings: Mild motion degradation. Brain: No acute hemorrhage. No acute infarct. No significant mass effect or mi dline shift. No gross evidence of a mass lesion or cerebral edema. Mild chronic microvascular ischemic disease and global parenchymal volume loss. Ventricles: No acute abnormality appreciated. Orbits, sinuses, mastoids: No acute abnormality appreciated. Trace sinus disease. Calvarium and soft tissues: No acute abnormality appreciated. Impression: Allowing for mild motion degradation, no acute abnormality is appreciated. Please note that all CT scans at this facility use dose modulation, iterative reconstruction, and/or weight-based dosing when appropriate to reduce radiation dose to as low as reasonably achievable. Dictated by Param Lentz MD @ 02/19/2025 3:41:41 AM (Electronic Signature) Dictated By: Param Lentz MD Signed By: 02/20/25 0754 DD/ 1541 TD/TT: 02/20/25 0754 Resident Care Technician: MACKENZIE Labs on day of discharge: Labs from last 24 hours 02/21/25 02/20/25 05:53 16:40 WBC 10.65 RBC 4.57 Hgb 13.4 L Hct 39.3 MCV 86 MCH 29 MCHC 34 RDW Coeff of Kirit 12.8 Plt Count 211 Neut % (Auto) 73.7 H Lymph % (Auto) 15.1 L Wilkes % (Auto) 10.2 Eos % (Auto) 0.7 Baso % (Auto) 0.2 Neut # (Auto) 7.80 H Lymph # (Auto) 1.60 Wilkes # (Auto) 1.10 H Eos # (Auto) 0.07 Baso # (Auto) 0.02 Abs Immat Gran (auto) 0.01 Imm/Tot Granulo (auto) 0.1 Sodium 135 131 L Potassium 3.6 Chloride 102 Carbon Dioxide 30 Anion Gap 3 L BUN 13 Creatinine 0.8 Estimated Creat Clear 68.23 Estimated GFR 99 Glucose 113 Calcium 8.4 Total Bilirubin 0.4 AST 49 H ALT 61 H Alkaline Phosphatase 65 Total Creatine Kinase 213 H 429 H Total Protein 6.1 Albumin 3.7 Discharge Plan Discharge Disposition: Home, Self-Care Date of Admission: 02/19/25 06:45 Attending Provider on Discharge: Tammy Leigh Primary Care Provider: Provider,Not a Local Condition: Improved Anticipated Discharge Date/Time: 02/21/25 10:24 Discharge Orders: Discharge Order (Routine); Ordered 02/21/25 Ordered By: Tammy Leigh Patient Education: Altered Mental Status (GEN), Opioid Withdrawal (DC) Additional Instructions: Avoid street or recreational drug use. Establish care with PCP in [place] and see them in 5-7 days for hospital f/u, consider cardiac referral. Activity Level: No Restrictions Discharge Diet: Regular Follow Up Appointments: Ketan Galvan MD [Staff Physician] - 02/27/25 2:15 pm ([facility] for follow-up.) Provider,Not a Local [Primary Care Provider] - Forms: [employer] Info Instructions
--- NOTE | 2025-02-21 11:33 | PC.NURSE ---
Discharge: patient discharged today at 1110 via taxi to home. IV's removed tip intact. Patients VSS, on RA denies N/V/SOB or pain. Discharge instructions given and signed, patient verbalized understanding. Belonging sheets signed.
== END 2025-02-21 11:10 | disposition home or self-care (01) | DRG 917 ==
LOC: ED 04:27 → MEDSURG 05:19
PROVIDERS: Family Medicine; Internal Medicine; Admitting Provider Internal Medicine; Emergency Provider Family Medicine; Visit Provider Internal Medicine
DX: T40.2X1A Poisoning by other opioids, accidental (unintentional), initial encounter (principal); G92.8 Other toxic encephalopathy; J96.01 Acute respiratory failure with hypoxia; I21.4 Non-ST elevation (NSTEMI) myocardial infarction; E87.21 Acute metabolic acidosis; N17.9 Acute kidney failure, unspecified; F11.23 Opioid dependence with withdrawal; F15.121 Other stimulant abuse with intoxication delirium; F14.121 Cocaine abuse with intoxication with delirium; F12.121 Cannabis abuse with intoxication delirium; I24.9 Acute ischemic heart disease, unspecified; T40.5X1A Poisoning by cocaine, accidental (unintentional), initial encounter; E86.0 Dehydration; R40.2421 Glasgow coma scale score 9-12, in the field [EMT or ambulance]; R40.2412 Glasgow coma scale score 13-15, at arrival to emergency department; F17.210 Nicotine dependence, cigarettes, uncomplicated; R74.01 Elevation of levels of liver transaminase levels; Z86.19 Personal history of other infectious and parasitic diseases
CPT/HCPCS: 36415; 70450; 71045; 80048; 80053; 80143; 80306; 81001; 81003; 82077; 82140; 82247; 82248; 82550; 82803; 83605; 83735; 84295; 84450; 84460; 84484; 85025; 85610; 93005; 93306; 94761; 99284; 99291; A9270; J1644; J2405; J7030; J7120; S4990